=== PATIENT | female | born 1970 | race Caucasian/White ===

== ENCOUNTER 2020-04-15 07:37 | Day surgery (SDC) | payer MEDICARE, MEDICAID ==
[2020-04-15] MEDS ORDERED: Dextrose 5%-Lactated Ringers 1,000 ML IV SCH (07:45)
[2020-04-15] MEDS ORDERED: Glycopyrrolate 0.2 MG/ML 2 ML SDV IVPUSH ONE (07:45)
[2020-04-15] MEDS ORDERED: Propofol 200 MG/20 ML SDV ONE (07:55)
[2020-04-15] MEDS ORDERED: Midazolam 1 MG/ML 2 ML SDV ONE (07:55)
[2020-04-15] MEDS ORDERED: Acetaminophen/HYDROcodone 325-5 MG Tab PO ONE (09:57)
--- NOTE | 2020-04-22 11:11 | OR ---
DATE OF PROCEDURE: 04/15/2020 SURGEON: Kai Wray MD PREOPERATIVE DIAGNOSIS: Recurrent severe reflux symptoms following previous Juliane fundoplication. POSTOPERATIVE DIAGNOSIS: Intact Juliane fundoplication with: 1. Extensive esophageal fungal overgrowth. 2. Large amount of retained bile and gastric contents consistent with gastroparesis and associated patchy gastritis. OPERATIVE PROCEDURE: Esophagogastroduodenoscopy with biopsies of antrum for CLOtest. ANESTHESIA: IV sedation. INDICATION FOR PROCEDURE: This is a 49-year-old status post previous Juliane fundoplication done in [place] in October of 2017. Over the last year, she has had increasing problems with reflux and now often wakes up having a large amount of regurgitation. This is significant enough that it is interfering with her CPAP use as probably upon some air entering in the abdomen, she regurgitates quite a bit and wakes up coughing with obviously having some element of aspiration. The plan is to proceed with upper GI endoscopy for evaluation of the problem. Potential risks of the procedure including bleeding and perforation were discussed and the patient wished to proceed. DETAILS OF PROCEDURE: The patient was taken to the operating room and placed in a left lateral decubitus position. IV sedation was administered after which the upper GI endoscope was passed orally through the length of the esophagus, into the stomach with retroflexion view of the fundus, thereafter through the pyloric channel and into the proximal duodenum. The patient was noted to have some redness in the hypopharynx and larynx. As one entered the esophagus, there was fairly striking esophageal overgrowth involving the entire length of the esophagus. At the EG junction, the patient did have an intact-appearing Juliane fundoplication, however as one entered the stomach, there was a large amount of bile as well as some undigested old food consistent with gastroparesis. This was associated with patchy redness in the stomach more or less diffusely. The pyloric channel and duodenum to the junction of the 3rd and 4th portions were otherwise unremarkable. At this point, biopsies were obtained from the antrum and sent for CLOtest to establish the patient's H. pylori status and the patient was taken to the recovery room in satisfactory condition. We will begin the patient on a combination of Diflucan and Mycostatin swish and swallow and also reinstitute some Protonix. She has not been on proton pump inhibitors recently and we will see her back in a week to see how the symptoms are going. The patient appeared to probably have developed gastroparesis, probably related to either underlying primary gastrointestinal disease versus development of vagotomy occurring during the Juliane fundoplication. At any rate, the patient's symptoms are such that she probably will need to have more of a resectional procedure in order to control the problem. We will see her back next week to discuss treatment options. Kai Wray MD /[id number]
== END 2020-04-15 10:38 | disposition home or self-care (01) ==
LOC: JP.SDS 07:37
PROVIDERS: ATTEND Surgery
DX: K21.9 Gastro-esophageal reflux disease without esophagitis (principal); B37.81 Candidal esophagitis; J44.9 Chronic obstructive pulmonary disease, unspecified; K31.89 Other diseases of stomach and duodenum; E66.9 Obesity, unspecified; Z88.8 Allergy status to other drugs, medicaments and biological substances; Z98.84 Bariatric surgery status; Z68.30 Body mass index [BMI] 30.0-30.9, adult
CPT/HCPCS: 43239; 87081; A9270; J2250; J2704; J3490; J7121

== ENCOUNTER 2020-05-22 08:06 | Inpatient (IN) | payer MEDICARE, MEDICAID ==
[~2020-05-22 08:06] MED LIST: Ketamine 50 MG in Sodium Chloride 0.9% 49.5 ML IV SCH; Ketamine 500 MG/5 ML MDV IV SCH; Magnesium Sulfate 2 GM in Sodium Chloride 0.9% 100 ML IV SCH
[2020-05-22] MEDS ORDERED: Acetaminophen 500 MG Tab PO ONE (08:35)
[2020-05-22] MEDS ORDERED: Scopolamine 1.5 MG Transdermal Patch TOP ONE (08:35)
[2020-05-22] MEDS ORDERED: cefOXitin 2 GM in Sodium Chloride 0.9% 50 ML IV ONE (09:30)
[2020-05-22] MEDS ORDERED: Albuterol/Ipratropium 3.0-0.5 MG/3 ML Neb Soln NEB ONE (09:30)
[2020-05-22] MEDS ORDERED: Dextrose 5%-Lactated Ringers 1,000 ML IV SCH (09:30)
[2020-05-22] MEDS ORDERED: Rocuronium 50 MG/5 ML Vial ONE (10:37)
[2020-05-22] MEDS ORDERED: fentaNYL 250 MCG/5 ML SDV ONE (10:37)
[2020-05-22] MEDS ORDERED: Succinylcholine 200 MG/10 ML MDV ONE (10:37)
[2020-05-22] MEDS ORDERED: Glycopyrrolate 0.2 MG/ML 5 ML MDV ONE (10:37)
[2020-05-22] MEDS ORDERED: Dexamethasone 4 MG/ML SDV ONE (10:37)
[2020-05-22] MEDS ORDERED: Propofol 200 MG/20 ML SDV ONE (10:37)
[2020-05-22] MEDS ORDERED: Neostigmine Methylsulfate 1 MG/ML 5 ML Syringe ONE (10:37)
[2020-05-22] MEDS ORDERED: Ondansetron 4 MG/2 ML SDV ONE (10:37)
[2020-05-22] MEDS ORDERED: Naloxone 0.4 MG/ML SDV IVPUSH PRN (11:15)
[2020-05-22] MEDS ORDERED: Meropenem 500 MG SDV ONE (12:31)
[2020-05-22] MEDS: HYDROmorphone/Normal Saline 15 MG/30 ML PCA IV PRN (12:43)
[2020-05-22] MEDS ORDERED: Naloxone 0.4 MG/ML SDV IV PRN (13:00)
[2020-05-22] MEDS ORDERED: fentaNYL 100 MCG/2 ML SDV ONE (13:16)
[2020-05-22] MEDS ORDERED: Ondansetron 4 MG/2 ML SDV IVPUSH PRN (16:00)
[2020-05-22] MEDS ORDERED: Calcium Gluconate 10% 1 GM/10 ML SDV IVPUSH PRN (16:00)
[2020-05-22] MEDS ORDERED: Labetalol 20 MG/4 ML Syringe IVPUSH PRN (16:00)
[2020-05-22] MEDS ORDERED: Pantoprazole 40 MG Vial IVPUSH SCH (16:00)
[2020-05-22] MEDS ORDERED: diphenhydrAMINE 50 MG/ML SDV IVPUSH PRN (16:00)
[2020-05-22] MEDS ORDERED: Acetaminophen 500 MG Tab PO PRN (16:00)
[2020-05-22] MEDS ORDERED: hydrOXYzine HCL 100 MG/2 ML SDV IM PRN (16:00)
[2020-05-22] MEDS ORDERED: Metoclopramide 10 MG/2 ML SDV IVPUSH PRN (16:00)
[2020-05-22] MEDS ORDERED: MVI, Adult with Vitamin K 10 ML, Thiamine 200 MG, Zinc/Copper/Manganese/Selenium 1 ML i... IV SCH ×4 (16:00)
[2020-05-22] MEDS: Acetaminophen 500 MG Tab PO SCH ×2 (16:30→23:35)
[2020-05-22] MEDS: cefOXitin 2 GM in Sodium Chloride 0.9% 50 ML IV SCH ×2 (16:37→22:55)
[2020-05-22] MEDS: ClonazePAM 1 MG Tab PO SCH ×2 (16:38→21:05)
[2020-05-22] MEDS: ARIPiprazole 10 MG Tab PO SCH (20:13)
[2020-05-22] MEDS: Topiramate 100 MG Tab PO SCH (20:13)
[2020-05-22] MEDS: Heparin Sodium 5,000 Units/ML Vial SUBCUT SCH (20:13)
[2020-05-22] MEDS: Albuterol/Ipratropium 3.0-0.5 MG/3 ML Neb Soln INH SCH (20:21)
[2020-05-22] MEDS: Dextrose 5%-Lactated Ringers 1,000 ML IV SCH (22:58)
[2020-05-23] MEDS ORDERED: Iopamidol 612 MG/ML 50 ML SDV PO STA (03:45)
[2020-05-23] MEDS: cefOXitin 2 GM in Sodium Chloride 0.9% 50 ML IV SCH ×4 (04:54→22:25)
[2020-05-23] MEDS: Dextrose 5%-Lactated Ringers 1,000 ML IV SCH (04:55)
[2020-05-23] MEDS: ClonazePAM 1 MG Tab PO SCH ×4 (05:03→22:25)
[2020-05-23] MEDS: Albuterol/Ipratropium 3.0-0.5 MG/3 ML Neb Soln INH SCH ×4 (07:20→20:21)
[2020-05-23] MEDS ORDERED: Ondansetron 4 MG Tab.DIS PO PRN (07:41)
[2020-05-23] MEDS: Celecoxib 200 MG Cap PO SCH ×2 (08:31→20:20)
[2020-05-23] MEDS: Heparin Sodium 5,000 Units/ML Vial SUBCUT SCH ×2 (08:31→20:20)
[2020-05-23] MEDS: Acetaminophen 500 MG Tab PO SCH ×2 (08:31→17:39)
[2020-05-23] MEDS: Furosemide 20 MG Tab PO SCH (08:31)
[2020-05-23] MEDS: SCOPOLAMINE PATCH CHECK TOP SCH (08:44)
--- NOTE | 2020-05-23 09:20 | CR ---
UGI Limited HISTORY: Postbariatric surgery FINDINGS: Patient swallowed water-soluble contrast. Upright views of the abdomen show no evidence of extravasation or obstruction. There is a surgical drain in the left upper quadrant. IMPRESSION: Status post bariatric surgery No extravasation or obstruction seen
--- NOTE | 2020-05-23 10:32 | PN ---
DATE OF SERVICE: 05/23/2020 SUBJECTIVE: Andreia is postoperative day 1. Her magnesium was stopped last evening. She was quite sleepy. She did ambulate once. Her upper GI was good this morning. Vital signs have been stable. Oral intake is 370. Reaves catheter output is 735. MARIA FERNANDA drain put out 55 mL. REVIEW OF SYSTEMS: The remainder of the review of systems is negative for any pertinent positives and negatives. OBJECTIVE: GENERAL: Andreia is a 49-year-old female. She is quite sleepy, resting comfortably. VITAL SIGNS: TPR 97.7 at 0251 hours, and pulse and the rest of the vital signs at 0600 hours 95, 15, blood pressure 127/55, and O2 is 99% on 2 L. HEENT: Negative. NECK: Supple. HEART: Regular rate and rhythm. LUNGS: Clear. ABDOMEN: Dressing is dry and intact. MARIA FERNANDA put out 55 mL of a light red drainage. An abdominal binder is on. EXTREMITIES: Without peripheral edema. ASSESSMENT: Exploratory laparotomy with esophagogastrectomy with Clarence-en-Y esophagojejunostomy, repair of recurrent esophageal diaphragmatic hernia, and excision of atypical pigmented skin lesions, suprapubic area; date of procedure 05/22/2020; surgeon Kai Wray MD. PLAN: 1. Schedule and have consent signed for a delayed primary closure on 05/24/2020, at 0800 hours; IV, local, and TAP block; surgeon Kai Wray. 2. N.p.o. after midnight. 3. Continue step 1 gastric bypass diet. 4. Decrease IV to 100 mL per hour. 5. Discontinue Reaves catheter. 6. Communication order, 3 med cups per hour to assure adequate oral intake. 7. Continue ambulation and use of incentive spirometer. 8. We will evaluate p.r.n. or in the a.m. Gemma Saab PA-C /[id number]
[2020-05-23] MEDS: MVI, Adult with Vitamin K 10 ML, Thiamine 200 MG, Zinc/Copper/Manganese/Selenium 1 ML i... IV SCH ×4 (17:39)
[2020-05-23] MEDS: Pantoprazole 40 MG Delayed-Release Granules 1 Packet PO SCH (17:39)
[2020-05-23] MEDS: Albuterol/Ipratropium 3.0-0.5 MG/3 ML Neb Soln INH PRN ×2 (19:41→22:46)
[2020-05-23] MEDS: Nicotine 14 MG/24 Hr Patch TRDERM SCH (20:20)
[2020-05-23] MEDS: Topiramate 100 MG Tab PO SCH (20:20)
[2020-05-23] MEDS: ARIPiprazole 10 MG Tab PO SCH (20:21)
[2020-05-23] MEDS: Benzocaine/Cetylpyridinium/Menthol Lozenge MUCMEM PRN (23:02)
[2020-05-24] MEDS: Acetaminophen 500 MG Tab PO SCH ×3 (00:51→17:16)
[2020-05-24] MEDS: Dextrose 5%-Lactated Ringers 1,000 ML IV SCH (04:19)
[2020-05-24] MEDS: Albuterol/Ipratropium 3.0-0.5 MG/3 ML Neb Soln INH PRN (04:27)
[2020-05-24] MEDS: ClonazePAM 1 MG Tab PO SCH ×4 (05:55→21:18)
[2020-05-24] MEDS ORDERED: Lidocaine 1% with EPINEPHrine 1:100,000 50 ML MDV ONE (06:50)
[2020-05-24] MEDS ORDERED: Bupivacaine 0.5% 50 ML MDV ONE (06:50)
[2020-05-24] MEDS ORDERED: Meropenem 500 MG SDV ONE (06:50)
[2020-05-24] MEDS: Albuterol/Ipratropium 3.0-0.5 MG/3 ML Neb Soln INH SCH ×4 (07:45→20:51)
[2020-05-24] MEDS ORDERED: Propofol 200 MG/20 ML SDV ONE ×2 (07:46→08:18)
[2020-05-24] MEDS ORDERED: fentaNYL 100 MCG/2 ML SDV ONE (07:47)
[2020-05-24] MEDS ORDERED: Cyanocobalamin (Vitamin B12) 1,000 MCG/ML SDV IM ONE (09:00)
[2020-05-24] MEDS: Heparin Sodium 5,000 Units/ML Vial SUBCUT SCH ×2 (11:35→19:25)
[2020-05-24] MEDS: Nicotine 14 MG/24 Hr Patch TRDERM SCH (11:37)
[2020-05-24] MEDS: Furosemide 20 MG Tab PO SCH (11:37)
[2020-05-24] MEDS: Celecoxib 200 MG Cap PO SCH ×2 (11:37→20:51)
[2020-05-24] MEDS: SCOPOLAMINE PATCH CHECK TOP SCH (11:38)
[2020-05-24] MEDS: Pantoprazole 40 MG Delayed-Release Granules 1 Packet PO SCH (17:16)
[2020-05-24] MEDS: MVI, Adult with Vitamin K 10 ML, Thiamine 200 MG, Zinc/Copper/Manganese/Selenium 1 ML i... IV SCH ×4 (17:17)
[2020-05-24] MEDS: HYDROmorphone/Normal Saline 15 MG/30 ML PCA IV PRN (19:31)
[2020-05-24] MEDS: ARIPiprazole 10 MG Tab PO SCH (20:51)
[2020-05-24] MEDS: Topiramate 100 MG Tab PO SCH (20:51)
[2020-05-25] MEDS: Acetaminophen 500 MG Tab PO SCH ×3 (00:06→15:38)
[2020-05-25] MEDS: Albuterol/Ipratropium 3.0-0.5 MG/3 ML Neb Soln INH PRN (00:07)
[2020-05-25] MEDS: Dextrose 5%-Lactated Ringers 1,000 ML IV SCH (02:57)
[2020-05-25] MEDS: ClonazePAM 1 MG Tab PO SCH ×4 (05:32→21:34)
[2020-05-25] MEDS: Albuterol/Ipratropium 3.0-0.5 MG/3 ML Neb Soln INH SCH ×4 (07:31→20:05)
[2020-05-25] MEDS: Heparin Sodium 5,000 Units/ML Vial SUBCUT SCH ×2 (08:35→20:05)
[2020-05-25] MEDS: Furosemide 20 MG Tab PO SCH (08:36)
[2020-05-25] MEDS: Celecoxib 200 MG Cap PO SCH ×2 (08:36→20:11)
[2020-05-25] MEDS: Nicotine 14 MG/24 Hr Patch TRDERM SCH (08:36)
[2020-05-25] MEDS: Docusate Sodium 100 MG Cap PO SCH ×2 (08:39→20:11)
[2020-05-25] MEDS: Bisacodyl 5 MG Tab PO SCH ×2 (08:39→20:11)
[2020-05-25] MEDS: Acetaminophen/HYDROcodone 325-10 MG Tab PO PRN ×3 (10:30→20:42)
--- NOTE | 2020-05-25 12:10 | OR ---
DATE OF PROCEDURE: 05/24/2020 SURGEON: Kai Wray MD PREOPERATIVE DIAGNOSIS: Open abdominal incision. POSTOPERATIVE DIAGNOSIS: Open abdominal incision. OPERATIVE PROCEDURE: Delayed primary closure of open abdominal incision. ANESTHESIA: Local plus IV sedation. INDICATION FOR PROCEDURE: The patient is status post open laparotomy with esophagogastrectomy open small bowel as well as stomach which had contained a large amount of bezoar-type material. Together, this may leave the patient at high risk for wound infection if primary closure was undertaken; therefore, the wound was packed open for a planned delayed primary closure at this time. Potential risks including bleeding and infection were discussed, and the patient wishes to proceed. DETAILS OF PROCEDURE: The patient was taken to the operating room and placed in a supine position. IV sedation was administered, after which the operative dressing was taken down. The wound was inspected and found to be clean. The abdomen was then prepped and draped. The wound edges anesthetized with 1% lidocaine, mixed with Marcaine, and irrigated with meropenem-containing saline solution. The subcutaneous tissue was closed with 2 layers of 3- 0 and 4-0 Vicryl stitch and buzz for the skin. Dressing was applied. Bilateral transversus abdominis plane blocks were placed and the patient was taken to the recovery room in satisfactory condition. There were no other complications. Kai Wray MD /[id number]
--- NOTE | 2020-05-25 13:21 | PN ---
DATE OF SERVICE: 05/25/2020 The patient has been afebrile with stable vital signs. The oral intake has been fairly good. No bowel movement as of yet. We will begin some bowel stimulation today and switch her over to oral pain medication. Currently, she is on hydrocodone 5/325 one tablet q.i.d. p.r.n. for chronic pain and we will go up to a 10/325 at this point. For now, I am going to contact her personal physician tomorrow morning which will be Tuesday regarding roughly 2- week course of that. She has been on pain contract with Dr. Conner in [place]. Otherwise, we will begin some bowel stimulation today and continue with step-2 diet. Kai Wray MD /[id number]
[2020-05-25] MEDS: Pantoprazole 40 MG Delayed-Release Granules 1 Packet PO SCH (15:38)
[2020-05-25] MEDS: MVI, Adult with Vitamin K 10 ML, Thiamine 200 MG, Zinc/Copper/Manganese/Selenium 1 ML i... IV SCH ×4 (15:44)
[2020-05-25] MEDS ORDERED: Furosemide 20 MG/2 ML VIAL IVPUSH ONE (16:30)
[2020-05-25] MEDS: Topiramate 100 MG Tab PO SCH (20:11)
[2020-05-25] MEDS: ARIPiprazole 10 MG Tab PO SCH (20:12)
--- NOTE | 2020-05-25 20:42 | PN ---
DATE OF SERVICE: 05/24/2020 The patient has been afebrile with stable vital signs. Oral intake has been fairly good. We will go up to a step 2 diet today, and otherwise maximize activity and work with pulmonary toilet. She will have a delayed primary closure of abdominal incision today as well, and we will keep the [employer] going for now and likely switching over to oral pain medication tomorrow. Kai Wray MD /[id number]
[2020-05-26] MEDS: Acetaminophen 500 MG Tab PO SCH ×4 (00:09→23:06)
[2020-05-26] MEDS: Acetaminophen/HYDROcodone 325-10 MG Tab PO PRN ×3 (03:26→16:58)
[2020-05-26] MEDS: ClonazePAM 1 MG Tab PO SCH ×4 (05:11→23:06)
[2020-05-26] MEDS ORDERED: Furosemide 20 MG/2 ML VIAL IVPUSH ONE ×2 (05:33→06:43)
[2020-05-26] MEDS ORDERED: Potassium Chloride 20 MEQ in Premix Bag 1 BAG IV ONE (05:39)
[2020-05-26] MEDS ORDERED: Potassium Chloride 20 MEQ, Lidocaine 1% 2 ML in Sodium Chloride 0.9% 100 ML IV SCH (05:45)
[2020-05-26] MEDS: Albuterol/Ipratropium 3.0-0.5 MG/3 ML Neb Soln INH SCH ×4 (07:15→20:10)
[2020-05-26] MEDS: Heparin Sodium 5,000 Units/ML Vial SUBCUT SCH ×2 (07:32→20:10)
[2020-05-26] MEDS: Potassium Chloride 20 MEQ, Lidocaine 1% 2 ML in Sodium Chloride 0.9% 100 ML IV SCH ×2 (08:52→11:25)
[2020-05-26] MEDS: Nicotine 14 MG/24 Hr Patch TRDERM SCH (08:55)
[2020-05-26] MEDS: Celecoxib 200 MG Cap PO SCH ×2 (08:55→20:10)
[2020-05-26] MEDS: Furosemide 20 MG Tab PO SCH (08:55)
--- NOTE | 2020-05-26 09:39 | PN ---
DATE OF SERVICE: 05/26/2020 SUBJECTIVE: Andreia became hypoxic with activity yesterday, so she has O2 on. She was given Lasix, had 1300 out after the Lasix. Potassium today is 2.9, magnesium is 1.7. BNP is 745. Temp max of 99.2, and she is on 1.5 to 2 L of oxygen, and she was taken off her oxygen on 05/25/2020, and she did go down to 69%. Currently, her O2 is at 1.5 L, and her pulse ox is 94. Oral intake on a step-2 gastric bypass diet with no cereal was 1850. Urine output 3100, MARIA FERNANDA drain put out 10 mL. She has had 3 bowel movements. Pain is controlled with Franklin 10/325 mg every 4 hours. REVIEW OF SYSTEMS: Remainder of review of systems negative for any pertinent positives and negatives. OBJECTIVE: GENERAL: Andreia Sinha is a pleasant 49-year-old female. She is sitting up in the chair. VITAL SIGNS: TPR is 97.4/116, 18. Blood pressure 117/68. HEENT: Negative. NECK: Supple. HEART: Regular rate and rhythm. LUNGS: Clear. ABDOMEN: Dressings dry and intact. Abdominal binder is on. MARIA FERNANDA drain as above. EXTREMITIES: Without peripheral edema. ASSESSMENT: 1. 05/24/2020, delayed primary closure of open abdominal incision. Kai Wray MD. 2. Exploratory laparotomy with esophagogastrectomy with Clarence-en-Y esophagojejunostomy, repair of recurrent esophageal diaphragmatic hernia and excision of atypical pigmented skin lesion, suprapubic area. Date of procedure, 05/22/2020. Surgeon: Kai Wray MD. 3. Hypoxia. 4. Elevated BNP. PLAN: 1. Lasix 20 mg IV now. 2. KCl 40 mEq IV now. 3. Lasix 40 mg IV at 1400. 4. Check CBC, CMP, mag, phos, and BNP in a.m. 5. Saline lock IV. 6. Discontinue bowel stimulation. 7. Referral to consultation. The patient states that she was sleepy when she had her first visit. Dr. Conner will be called in regard to her pain medication. She is on a pain contract and will need to have her Franklin increased for 2 weeks. We will evaluate p.r.n. or in a.m. Gemma Norby, PA-C /[id number]
--- NOTE | 2020-05-26 09:50 | CR ---
CHEST: 2 view CLINICAL HISTORY:Shortness of breath COMPARISON:None FINDINGS: Patient has developed diffuse bilateral predominantly interstitial infiltrates. Heart size and pulmonary vascularity appear normal. No effusions are seen. IMPRESSION: Diffuse bilateral pulmonary infiltrates. These appear to be new when comparing to a limited postoperative upper GI image. Comparison with prior chest x-ray would be helpful. Findings are most consistent with pneumonitis. Interstitial edema from CHF is felt less likely
[2020-05-26] MEDS ORDERED: Dextrose 5%-Lactated Ringers 1,000 ML IV SCH (10:00)
[2020-05-26] MEDS ORDERED: Furosemide 40 MG/4 ML VIAL IVPUSH ONE (14:00)
[2020-05-26] MEDS: Pantoprazole 40 MG Delayed-Release Granules 1 Packet PO SCH (16:21)
[2020-05-26] MEDS: Topiramate 100 MG Tab PO SCH (20:10)
[2020-05-26] MEDS: ARIPiprazole 10 MG Tab PO SCH (20:10)
[2020-05-27] MEDS: Albuterol/Ipratropium 3.0-0.5 MG/3 ML Neb Soln INH PRN (03:14)
[2020-05-27] MEDS: Acetaminophen/HYDROcodone 325-10 MG Tab PO PRN ×4 (03:41→20:48)
[2020-05-27] MEDS: ClonazePAM 1 MG Tab PO SCH ×5 (05:09→23:01)
[2020-05-27] MEDS ORDERED: Potassium Chloride Riders 40 MEQ in Premix Bag 1 BAG IV ONE (06:58)
[2020-05-27] MEDS: Albuterol/Ipratropium 3.0-0.5 MG/3 ML Neb Soln INH SCH ×4 (07:38→20:49)
[2020-05-27] MEDS: Acetaminophen 500 MG Tab PO SCH ×3 (07:58→23:46)
[2020-05-27] MEDS: Heparin Sodium 5,000 Units/ML Vial SUBCUT SCH (07:58)
[2020-05-27] MEDS: Nicotine 14 MG/24 Hr Patch TRDERM SCH (08:14)
[2020-05-27] MEDS: Celecoxib 200 MG Cap PO SCH ×2 (08:15→20:50)
[2020-05-27] MEDS: Furosemide 20 MG Tab PO SCH (08:15)
[2020-05-27] MEDS: Potassium Chloride 10% 20 MEQ/15 ML Soln 15 ML UD Cup PO SCH ×2 (08:23→20:50)
[2020-05-27] MEDS: Potassium Chloride 20 MEQ, Lidocaine 1% 2 ML in Sodium Chloride 0.9% 100 ML IV SCH ×2 (08:24→11:50)
[2020-05-27] MEDS: Furosemide 40 MG/4 ML VIAL IVPUSH SCH ×2 (08:24→14:14)
--- NOTE | 2020-05-27 09:20 | CR ---
CHEST: 2 view CLINICAL HISTORY:Hypoxia COMPARISON:05/26/2020 FINDINGS: Diffuse bilateral pulmonary infiltrates persist without significant change. Heart size and pulmonary vascularity are normal. There has been previous abdominal surgery IMPRESSION: Persistent diffuse bilateral pulmonary infiltrates suggest pneumonitis.
[2020-05-27] MEDS ORDERED: Sodium Chloride 0.9% 10 ML Syringe FLUSH ONE (10:23)
--- NOTE | 2020-05-27 10:25 | PN ---
DATE OF SERVICE: 05/27/2020 SUBJECTIVE: Andreia reports her pain is controlled. Vital signs have been stable. She remains to be hypoxic and requires 2 L of O2 and her oxygen with the 2 L remains 90% to 96%. Pulse rate has been slightly tachycardic 107 to 122. Oral intake 1850. Urine output 3100. MARIA FERNANDA drain put out 10 mL of a light pink serosanguineous drainage. LABORATORY DATA: Hemoglobin 10.7. Potassium is 3. REVIEW OF SYSTEMS: Remainder of review of systems negative for any pertinent positives and negatives. OBJECTIVE: GENERAL: Andreia Sinha is a pleasant 49-year-old female. VITAL SIGNS: TPR at 0300, 99.4; 107; 18; blood pressure 97/64; O2 sat by pulse oximetry 94% on 3 L. HEENT: Negative. NECK: Supple. HEART: Regular rate and rhythm. LUNGS: Revealed decreased breath sounds bilaterally. She does have rales in her bases, rhonchi with coughing. ABDOMEN: Aquacel dressings on. Abdominal binder is on. MARIA FERNANDA drain intact, draining as above. EXTREMITIES: Revealed trace peripheral edema. SCDs are on. ASSESSMENT: 1. Hypoxia. 2. 05/24/2020, delayed primary closure for open abdominal incision. 3. Exploratory laparotomy with esophagogastrectomy with Clarence-en-Y esophagojejunostomy, then repair of recurrent esophageal diaphragmatic hernia and excision of atypical skin lesion, suprapubic area. 4. Date of procedure: 05/22/2020. Surgeon: Kai Wray MD. PLAN: 1. Consult Dr. Collins for hypoxia. 2. KCl 40 mEq liquid b.i.d. today. 3. KCl 40 mEq IV 1 time today. 4. Lasix 40 mg IV b.i.d. today, 1 dose now and the other dose at 1400. 5. Chest x-ray PA and lateral now. 6. Discontinue MARIA FERNANDA drain. 7. Check CBC, CMP, mag, phos, and BNP in a.m. 8. Andreia does use a CPAP at home, and if a family member is coming to see her, they will bring that CPAP into the hospital for use while she is in the hospital. 9. Discussed cessation of smoking. 10.We will evaluate p.r.n. or in a.m. Gemma Saab PA-C /[id number]
[2020-05-27] MEDS ORDERED: Sodium Chloride 0.9% 100 ML IV SCH (10:30)
[2020-05-27] MEDS ORDERED: Iopamidol 755 Mg/ML 100 ML Bottle IV SCH (10:30)
--- NOTE | 2020-05-27 12:47 | CT ---
Ang Chest CLINICAL HISTORY: Hypoxia TECHNIQUE: Thin section axial contiguous tomographic sections were taken through the chest after bolus IV iodinated contrast administration. Coronal and sagittal images were reconstructed. Auto dosage reduction and iterative reconstruction techniques employed. FINDINGS: Patient is moderate diffuse bilateral groundglass opacities and some interstitial infiltrate. This is greater on the right. No mediastinal mass is identified. There are some nonspecific mediastinal lymph nodes. There are scattered small clots in the branching vessels in both lungs more prominent in the lower lobes. Aorta is free of aneurysm or dissection. Scans in the upper abdomen show previous gastric surgery and cholecystectomy. IMPRESSION: Scattered small pulmonary bilaterally Diffuse groundglass opacification most consistent with pneumonitis Dr. Wray and Dr. Collins were notified of the findings by telephone at the time of this dictation at 12:40 PM
--- NOTE | 2020-05-27 13:18 | PCM.CONS ---
H&P History of Present Illness - General Date of Service: 05/27/20 Admit Problem/Dx: Admission Diagnosis/Problem Admission Diagnosis/Problem Surgical procedure Source of Information: Patient, Provider, RN Notes Reviewed History Limitations: Reports: No Limitations - History of Present Illness Initial Comments - Free Text/Narative: Ms. Sinha is a 49-year-old woman who I been asked to see by Dr. Wray concerning postoperative hypoxia. She was admitted on 22 May and underwent exploratory laparotomy for esophagogastrectomy with formation of a Rj-en-Y esophagojejunostomy. She initially did well during the postoperative period and did undergo delayed primary closure on the . Over the past few days has become progressively more hypoxic and requiring increased levels of supplemental oxygen. Chest x-rays have shown bilateral infiltrates versus fluid. She has failed to improve from a respiratory standpoint despite good diuresis. CT angiogram of the chest has been obtained this morning and does document bilateral pulmonary emboli as well as groundglass bilateral infiltrates consistent with probable viral infection. Abdominal Pain Score (Numeric/FACES): 8 - Related Data Allergies/Adverse Reactions: Allergies Allergy/AdvReac Type Severity Reaction Status Date / Time citalopram [From Celexa] Allergy Other Verified 05/22/20 09:08 fentanyl Allergy Headache Verified 05/22/20 09:08 tramadol Allergy Hives Verified 05/22/20 09:08 morphine AdvReac Diarrhea Verified 05/22/20 09:08 oxcarbazepine AdvReac Nausea Verified 05/22/20 09:08 Home Medications: Home Meds Albuterol Sulfate [Proair Hfa] 2 puff IH Q4H PRN 04/15/20 [History] Brexpiprazole [Rexulti] 2 mg PO BEDTIME 04/15/20 [History] Calcium Carb/Vitamin D3/Vit K1 [Calcium + Vit D & K Chew] 1 each PO DAILY 04/15/20 [History] Cyclobenzaprine [Flexeril] 10 mg PO BEDTIME PRN 04/15/20 [History] Diclofenac Sodium [Voltaren 1% Gel] 2 gm TOP QID PRN 04/15/20 [History] Escitalopram [Lexapro] 10 mg PO BEDTIME 04/15/20 [History] Fluticasone Propionate [Flonase] 2 sprays NS DAILY PRN 04/15/20 [History] Furosemide [Lasix] 20 mg PO DAILY 04/15/20 [History] Hydrocodone/Acetaminophen [Hubbard 5-325 Tablet] 1 tab PO QID PRN 04/15/20 [History] SUMAtriptan succinate [Imitrex] 50 mg PO ASDIRECTED PRN 04/15/20 [History] Sennosides [Senna] 17.2 mg PO BID PRN 04/15/20 [History] Topiramate [Topamax] 200 mg PO BEDTIME 04/15/20 [History] atorvaSTATin [Lipitor] 10 mg PO BEDTIME 04/15/20 [History] clonazePAM [Clonazepam] 1 mg PO QID 04/15/20 [History] Past Medical History Cardiovascular History: Reports: High Cholesterol Respiratory History: Reports: Sleep Apnea, Other (See Below) Other Respiratory History: emphysema Gastrointestinal History: Reports: Chronic Constipation, GERD, Hiatal Hernia Genitourinary History: Reports: Other (See Below) Other Genitourinary History: 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: , Spontaneous Musculoskeletal History: Reports: Arthritis, Back Pain, Chronic, Fracture, Fibromyalgia, Neck Pain, Chronic, Osteoporosis Neurological History: Reports: Head Trauma, Vertigo Psychiatric History: Reports: Anxiety, Depression Hematologic History: Reports: Blood Transfusion(s) Oncologic (Cancer) History: Reports: Cervix - Infectious Disease History Infectious Disease History: Reports: Chicken Pox, Novel Coronavirus, Rheumatic Fever - Past Surgical History Respiratory Surgical History: Reports: None GI Surgical History: Reports: Cholecystectomy, Colonoscopy, EGD, Juliane Fundoplication Female Surgical History: Reports: D&C Musculoskeletal Surgical History: Reports: None Dermatological Surgical History: Reports: None Social & Family History - Family History Family Medical History: No Pertinent Family History Cardiac: Reports: Hypertension Respiratory: Reports: COPD GI: Reports: Colon Polyps OBGYN: Reports: Other (See Below) Other OBGYN Family History: polycystic ovarian syndrome Endocrine/Metabolic: Reports: Obesity/MBI 30+ Oncologic: Reports: Lung, Metastatic, Skin - Tobacco Use Tobacco Use Status *Q: Current Every Day Tobacco User Years of Tobacco use: 40 Packs/Tins Daily: 0.5 Used Tobacco, but Quit: No Second Hand Smoke Exposure: Yes - Caffeine Use Caffeine Use: Reports: Coffee - Recreational Drug Use Recreational Drug Use: No H&P Review of Systems - Review of Systems: Review Of Systems: See Below General: Reports: Weakness, Fatigue. Denies: Fever, Chills Pulmonary: Reports: Shortness of Breath. Denies: Wheezing, Pleuritic Chest Pain, Cough, Sputum, Hemoptysis Cardiovascular: Reports: Dyspnea on Exertion. Denies: Chest Pain, Palpitations, Orthopnea, PND, Edema, Lightheadedness Gastrointestinal: Reports: Abdominal Pain. Denies: Difficulty Swallowing, Distension, Hematemesis, Hematochezia, Melena, Nausea, Vomiting Genitourinary: Reports: No Symptoms Exam - Exam Exam: See Below - Vital Signs Vital Signs: Last Vital Signs Temp 97 F 05/27/20 11:00 Pulse 114 H 05/27/20 11:00 Resp 16 05/27/20 11:00 BP 102/63 05/27/20 11:00 Pulse Ox 94 L 05/27/20 11:00 Weight: 144 lb - Exam Quality Assessment: Supplemental Oxygen, DVT Prophylaxis General: Alert, Oriented, Cooperative, Moderate Distress Neck: Supple, Trachea Midline, +2 Carotid Pulse wo Bruit Lungs: Decreased Breath Sounds, Rales. No: Rhonchi, Wheezing Cardiovascular: Regular Rate, Regular Rhythm, Normal S1, Normal S2. No: Systolic Murmur, Diastolic Murmur GI/Abdominal Exam: Soft, No Organomegaly, Tender. No: Distended, Guarding, Rigid, Rebound Extremities: Non-Tender, No Pedal Edema - Patient Data Lab Results Last 24 hrs: Laboratory Results - last 24 hr 05/22/20 05/26/20 05/27/20 Range/Units 09:00 16:50 05:00 WBC 11.9 H (4.5-11.0) K/uL RBC 3.43 (3.30-5.50) M/uL Hgb 10.7 L (12.0-15.0) g/dL Hct 34.2 L (36.0-48.0) % MCV 100 H (80-98) fL MCH 31 (27-31) pg MCHC 31 L (32-36) % Plt Count 268 (150-400) K/uL Sodium (140-148) mmol/L Potassium 3.2 L (3.6-5.2) mmol/L Chloride (100-108) mmol/L Carbon Dioxide (21-32) mmol/L Anion Gap (5.0-14.0) mmol/L BUN (7-18) mg/dL Creatinine (0.6-1.0) mg/dL Est Cr Clr Drug Dosing mL/min Estimated GFR (MDRD) (>60) Glucose (74-106) mg/dL Calcium (8.5-10.1) mg/dL Phosphorus (2.5-4.9) mg/dL Magnesium (1.8-2.4) mg/dL Total Bilirubin (0.2-1.0) mg/dL AST (15-37) U/L ALT (12-78) U/L Alkaline Phosphatase (46-116) U/L NT-Pro-B Natriuret Pep (5-125) pg/mL Total Protein (6.4-8.2) g/dL Albumin (3.4-5.0) g/dL Globulin (2.3-3.5) g/dL Albumin/Globulin Ratio (1.2-2.2) Vitamin A 54.0 (20.1-62.0) ug/dL 05/27/20 Range/Units 05:00 WBC (4.5-11.0) K/uL RBC (3.30-5.50) M/uL Hgb (12.0-15.0) g/dL Hct (36.0-48.0) % MCV (80-98) fL MCH (27-31) pg MCHC (32-36) % Plt Count (150-400) K/uL Sodium 143 (140-148) mmol/L Potassium 3.0 L (3.6-5.2) mmol/L Chloride 107 (100-108) mmol/L Carbon Dioxide 25 (21-32) mmol/L Anion Gap 14.0 (5.0-14.0) mmol/L BUN 11 (7-18) mg/dL Creatinine 0.8 (0.6-1.0) mg/dL Est Cr Clr Drug Dosing 60.43 mL/min Estimated GFR (MDRD) > 60 (>60) Glucose 83 (74-106) mg/dL Calcium 8.2 L (8.5-10.1) mg/dL Phosphorus 5.2 H (2.5-4.9) mg/dL Magnesium 1.8 (1.8-2.4) mg/dL Total Bilirubin 0.5 (0.2-1.0) mg/dL AST 45 H (15-37) U/L ALT 55 (12-78) U/L Alkaline Phosphatase 127 H (46-116) U/L NT-Pro-B Natriuret Pep 313 H (5-125) pg/mL Total Protein 5.3 L (6.4-8.2) g/dL Albumin 1.9 L (3.4-5.0) g/dL Globulin 3.4 (2.3-3.5) g/dL Albumin/Globulin Ratio 0.6 L (1.2-2.2) Vitamin A (20.1-62.0) ug/dL Result Diagrams: 05/27/20 05:00 05/27/20 05:00 Sepsis Event Note - Evaluation Sepsis Screening Result: No Definite Risk - Focused Exam Vital Signs: Vital Signs Temp Pulse Resp BP BP Pulse Ox 05/27/20 11:00 97 F 114 H 16 102/63 94 L 05/27/20 07:00 97.8 F 108 H 18 108/63 97 05/27/20 03:00 99.4 F 107 H 18 97/64 94 L Consult PN Assessment/Plan Procedures: Procedures CULTURE SCREEN ONLY (04/15/20) EGD BIOPSY SINGLE/MULTIPLE (04/15/20) Problem List Initiated/Reviewed/Updated: Yes My Orders Last 24 Hours: My Active Orders 05/27/20 12:42 CORONAVIRUS COVID-19, YONI Stat 05/27/20 16:00 Enoxaparin [Lovenox] 70 mg SUBCUT Q12H Plan: ASSESSMENT AND RECOMMENDATIONS BILATERAL PULMONARY EMBOLI-no prior history of deep vein thrombosis or pulmonary emboli. CT scan did document bilateral small pulmonary emboli. Likely a contributing factor to her hypoxic respiratory compromise. -Lovenox 70 mg subcu every 12 hours -Transition to oral anticoagulation in 48 hours BILATERAL PULMONARY INFILTRATES-CT scan shows bilateral groundglass infiltrates with areas of consolidation. She has a known history of COVID-19 infection occurring 2-1/2 months ago. Currently has normal white blood cell count and no significant temperature elevation. Possible viral infection versus bacterial. -Blood cultures pending -Initiate broad-spectrum antibiotic therapy for possible healthcare associated pneumonia; vancomycin, levofloxacin, and Zosyn HYPOXIC RESPIRATORY FAILURE-requiring increasing levels of supplemental oxygen to maintain adequate oxygenation. No significant improvement noted thus far with diuresis. Likely secondary to pulmonary emboli and bilateral pulmonary infiltrates. -Nebulizer therapy as needed -Supplemental oxygen as needed STATUS POST ESOPHAGOGASTRECTOMY AND CREATION OF RJ-EN-Y ESOPHAGOJEJUNOSTOMY -Postoperative care per Dr. Wray Requesting Provider: BUBBA Date Consult Requested: 05/27/20 Reason for Consult: Hypoxia Patient History Reviewed: Yes Notified Requestor: Yes
[2020-05-27] MEDS: Enoxaparin 80 MG/0.8 ML Syringe SUBCUT SCH (15:43)
[2020-05-27] MEDS: Pantoprazole 40 MG Delayed-Release Granules 1 Packet PO SCH (15:45)
[2020-05-27] MEDS ORDERED: Vancomycin 1 GM SDV IV SCH (16:00)
[2020-05-27] MEDS: Levofloxacin/Dextrose 5%-Water 750 MG in Premix Bag 1 BAG IV SCH (16:05)
[2020-05-27] MEDS: Piperacillin/Tazobactam/Dext 3.375 GM in Premix Bag 1 BAG IV SCH ×2 (17:29→23:45)
[2020-05-27] MEDS ORDERED: Vancomycin 1.3 GM in Sodium Chloride 0.9% 250 ML IV ONE (18:00)
[2020-05-27] MEDS: Cyclobenzaprine 10 MG Tab PO PRN (18:11)
[2020-05-27] MEDS: Lactobacillus Rhamnosus GG (Probiotic) Cap PO SCH (20:49)
[2020-05-27] MEDS: Topiramate 100 MG Tab PO SCH (20:50)
[2020-05-27] MEDS: ARIPiprazole 10 MG Tab PO SCH (20:50)
[2020-05-28] MEDS: Enoxaparin 80 MG/0.8 ML Syringe SUBCUT SCH ×3 (02:49→15:34)
[2020-05-28] MEDS: Cyclobenzaprine 10 MG Tab PO PRN (02:58)
[2020-05-28] MEDS: Piperacillin/Tazobactam/Dext 3.375 GM in Premix Bag 1 BAG IV SCH ×3 (05:01→17:22)
[2020-05-28] MEDS: ClonazePAM 1 MG Tab PO SCH ×4 (06:29→21:51)
[2020-05-28] MEDS: Albuterol/Ipratropium 3.0-0.5 MG/3 ML Neb Soln INH SCH ×4 (06:29→21:48)
[2020-05-28] MEDS: Acetaminophen/HYDROcodone 325-10 MG Tab PO PRN ×4 (06:36→22:09)
[2020-05-28] MEDS: Celecoxib 200 MG Cap PO SCH ×2 (08:07→21:51)
[2020-05-28] MEDS: Nicotine 14 MG/24 Hr Patch TRDERM SCH (08:07)
[2020-05-28] MEDS: Lactobacillus Rhamnosus GG (Probiotic) Cap PO SCH ×2 (08:07→21:51)
[2020-05-28] MEDS: Furosemide 20 MG Tab PO SCH (08:08)
[2020-05-28] MEDS: Hypromellose 0.3% Ophth Soln 15 ML Bottle EYEBOTH PRN ×2 (09:47→17:24)
--- NOTE | 2020-05-28 10:40 | PN ---
DATE OF SERVICE: 05/28/2020 SUBJECTIVE: Andreia currently is very sleepy. She is on 4 L of O2 to maintain 92%. Blood pressure has been low at 94/49. She was started on Lovenox for bilateral pulmonary embolism yesterday. Unable to obtain history due to inability to wake her up. OBJECTIVE: GENERAL: Andreia Sinha is a 49-year-old female. VITAL SIGNS: TPR is 99.3; 110; 22; blood pressure 82/48. Pulse oximetry last checked, it was 97% on 2 L; prior to that at 02:35, 80%; and at 06:26, it was 88%. HEART: Regular rate and rhythm. LUNGS: Shallow, but she is soundly sleeping. Rest of exam deferred. ASSESSMENT: 1. Bilateral pulmonary embolism. 2. Hypoxia. 3. 05/24/2020, delayed primary closure for open abdominal incision. 4. Exploratory laparotomy with esophagogastrectomy with Clarence-en-Y esophagojejunostomy, then repair of recurrent esophageal diaphragmatic hernia and excision of atypical skin lesion suprapubic area. Date of procedure: 05/22/2020. Surgeon: Kai Wray MD. PLAN: 1. Discontinue Tylenol p.r.n. 2. Check CBC, CMP, mag, phos in a.m. 3. We will evaluate p.r.n. Nurses are aware of her sleepiness and will alter her with the Klonopin, so she does not get them the same time. 4. We will evaluate p.r.n. or in a.m. Gemma Saab PA-C /[id number]
--- NOTE | 2020-05-28 13:18 | PCM.CONSN ---
- General Info Date of Service: 05/28/20 Subjective Update: Ms. Sinha has been stable over the last 24 hours and has shown some improvement in respiratory status. Yesterday had been requiring 3 to 4 L of oxygen per minute via nasal cannula to obtain adequate saturations. She is now down to 2 L/min via nasal cannula and otherwise feeling well. Functional Status: Reports: Tolerating Diet, Ambulating, Urinating - Review of Systems General: Reports: Weakness, Fatigue. Denies: Fever, Chills Pulmonary: Reports: No Symptoms Cardiovascular: Reports: No Symptoms Gastrointestinal: Reports: Abdominal Pain. Denies: Difficulty Swallowing, Hematochezia, Melena, Nausea, Vomiting - Patient Data Vitals - Most Recent: Last Vital Signs Temp 98 F 05/28/20 11:33 Pulse 116 H 05/28/20 11:33 Resp 18 05/28/20 11:33 BP 92/59 L 05/28/20 11:33 Pulse Ox 94 L 05/28/20 11:33 Weight - Most Recent: 144 lb I&O - Last 24 Hours: Intake & Output 05/27/20 05/28/20 05/28/20 22:59 06:59 14:59 Intake Total 1380 350 Output Total 1725 800 Balance -345 -450 Lab Results Last 24 Hours: Laboratory Results - last 24 hr 05/28/20 05/28/20 Range/Units 04:00 04:00 WBC 11.5 H (4.5-11.0) K/uL RBC 3.29 L (3.30-5.50) M/uL Hgb 10.4 L (12.0-15.0) g/dL Hct 33.1 L (36.0-48.0) % MCV 101 H (80-98) fL MCH 32 H (27-31) pg MCHC 31 L (32-36) % Plt Count 296 (150-400) K/uL Sodium 140 (140-148) mmol/L Potassium 4.1 (3.6-5.2) mmol/L Chloride 107 (100-108) mmol/L Carbon Dioxide 25 (21-32) mmol/L Anion Gap 7.9 (5.0-14.0) mmol/L BUN 9 (7-18) mg/dL Creatinine 1.0 (0.6-1.0) mg/dL Est Cr Clr Drug Dosing 48.34 mL/min Estimated GFR (MDRD) 59 L (>60) Glucose 83 (74-106) mg/dL Calcium 8.3 L (8.5-10.1) mg/dL Phosphorus 5.1 H (2.5-4.9) mg/dL Magnesium 2.0 (1.8-2.4) mg/dL Total Bilirubin 0.5 (0.2-1.0) mg/dL AST 41 H (15-37) U/L ALT 45 (12-78) U/L Alkaline Phosphatase 139 H (46-116) U/L NT-Pro-B Natriuret Pep 192 H (5-125) pg/mL Total Protein 5.5 L (6.4-8.2) g/dL Albumin 1.9 L (3.4-5.0) g/dL Globulin 3.6 H (2.3-3.5) g/dL Albumin/Globulin Ratio 0.5 L (1.2-2.2) Med Orders - Current: Current Medications Hydrocodone Bitart/Acetaminophen ([place] 325-10 Mg) 1 tab PO Q4H PRN PRN Reason: Pain Last Admin: 05/28/20 12:20 Dose: 1 tab Documented by: Albuterol/Ipratropium (Duoneb 3.0-0.5 Mg/3 Ml) 3 ml INH QIDRT [facility] Last Admin: 05/28/20 10:56 Dose: 3 ml Documented by: Albuterol/Ipratropium (Duoneb 3.0-0.5 Mg/3 Ml) 3 ml INH ASDIRECTED PRN PRN Reason: BREATHING Last Admin: 05/27/20 03:14 Dose: 3 ml Documented by: Apixaban (Eliquis) 10 mg PO BID [facility] Stop: 06/04/20 21:01 Aripiprazole (Abilify) 10 mg PO BEDTIME [facility] Last Admin: 05/27/20 20:50 Dose: 10 mg Documented by: Artificial Tears (Genteal Mild To Moderate Ophth Soln) 0 ml EYEBOTH Q1H PRN PRN Reason: Dry Eyes Last Admin: 05/28/20 09:47 Dose: 1 applic Documented by: Benzocaine/Menthol (Cepacol Sore Throat) 1 lozenge MUCMEM Q2H PRN PRN Reason: Sore Throat Last Admin: 05/23/20 23:02 Dose: 1 kailey Documented by: Celecoxib (Celebrex) 200 mg PO BID [facility] Last Admin: 05/28/20 08:07 Dose: 200 mg Documented by: Clonazepam (Klonopin) 1 mg PO QID [facility] Last Admin: 05/28/20 09:43 Dose: 1 mg Documented by: Cyclobenzaprine HCl (Flexeril) 10 mg PO Q8H PRN PRN Reason: Muscle Spasm Last Admin: 05/28/20 02:58 Dose: 10 mg Documented by: Diphenhydramine HCl (Benadryl) 50 mg IVPUSH Q4H PRN PRN Reason: ITCHING Enoxaparin Sodium (Lovenox) 70 mg SUBCUT Q12H [facility] Stop: 05/29/20 08:00 Last Admin: 05/28/20 03:05 Dose: Not Given Documented by: Furosemide (Lasix) 20 mg PO DAILY [facility] Last Admin: 05/28/20 08:08 Dose: 20 mg Documented by: Hydroxyzine HCl (Vistaril) 100 mg IM Q4H PRN PRN Reason: pain Last Admin: 05/28/20 02:58 Dose: 100 mg Documented by: Piperacillin/Tazobactam/ (Dextrose 3.375 gm/ Premix) 50 mls @ 100 mls/hr IV Q6H [facility] Last Admin: 05/28/20 10:53 Dose: 100 mls/hr Documented by: Levofloxacin/Dextrose 750 mg/ (Premix) 150 mls @ 100 mls/hr IV Q24H [facility] Last Admin: 05/27/20 16:05 Dose: 100 mls/hr Documented by: Vancomycin HCl 1 gm/ Sodium (Chloride) 250 mls @ 167 mls/hr IV Q12H [facility] Last Admin: 05/28/20 05:02 Dose: 167 mls/hr Documented by: Labetalol HCl (Normodyne) 5 mg IVPUSH Q5M PRN PRN Reason: SBP over 160 OR DBP over 95 Lactobacillus Rhamnosus (Culturelle) 1 cap PO BID [facility] Last Admin: 05/28/20 08:07 Dose: 1 cap Documented by: Metoclopramide HCl (Reglan) 10 mg IVPUSH Q6H PRN PRN Reason: NAUSEA NOT CONTROL BY ZOFRAN Nicotine (Habitrol) 14 mg TRDERM DAILY [facility] Last Admin: 05/28/20 08:07 Dose: 14 mg Documented by: Ondansetron HCl (Zofran) 4 mg IVPUSH Q4H PRN PRN Reason: Nausea/Vomiting Ondansetron HCl (Zofran Odt) 4 mg PO Q4H PRN PRN Reason: Nausea/Vomiting Pantoprazole Sodium (Protonix Granules) 40 mg PO Q24H [facility] Last Admin: 05/27/20 15:45 Dose: 40 mg Documented by: Topiramate (Topamax) 200 mg PO BEDTIME [facility] Last Admin: 05/27/20 20:50 Dose: 200 mg Documented by: Discontinued Medications Acetaminophen (Tylenol Extra Strength) 1,000 mg PO ONETIME ONE Stop: 05/22/20 08:36 Last Admin: 05/22/20 09:16 Dose: 1,000 mg Documented by: Acetaminophen (Tylenol Extra Strength) 1,000 mg PO Q8H [facility] Last Admin: 05/27/20 23:46 Dose: 1,000 mg Documented by: Acetaminophen (Tylenol Extra Strength) 500 mg PO Q8H PRN PRN Reason: MILD PAIN Hydrocodone Bitart/Acetaminophen ([place] 325-10 Mg) 1 tab PO Q4H PRN PRN Reason: PAIN Last Admin: 05/28/20 06:36 Dose: 1 tab Documented by: Albuterol/Ipratropium (Duoneb 3.0-0.5 Mg/3 Ml) 3 ml NEB ONETIME ONE Stop: 05/22/20 09:31 Last Admin: 05/22/20 10:32 Dose: 3 ml Documented by: Bisacodyl (Dulcolax) 10 mg PO BID [facility] Last Admin: 05/25/20 20:11 Dose: 10 mg Documented by: Bupivacaine HCl (Marcaine 0.5%) Confirm Administered Dose 50 ml .ROUTE .STK-MED ONE Stop: 05/24/20 06:51 Last Admin: 05/24/20 08:20 Dose: 14 ml Documented by: Calcium Gluconate (Calcium Gluconate) 1 gm IVPUSH ONETIME PRN PRN Reason: SX MAGNESIUM TOXICITY Stop: 05/22/20 23:59 Ropivacaine 33 ml/Dexamethasone 8 mg/Epinephrine HCl 0.4 mg/ Sodium Chloride 44.6 ml 0 ml NERVRT ASDIRECTED [facility] Last Admin: 05/22/20 12:10 Dose: 80 syringe Documented by: Ropivacaine 33 ml/Dexamethasone 8 mg/Epinephrine HCl 0.4 mg/ Sodium Chloride 44.6 ml 0 ml NERVRT ASDIRECTED [facility] Last Admin: 05/24/20 08:20 Dose: 80 syringe Documented by: Cyanocobalamin (Vitamin B12) 1,000 mcg IM ONETIME ONE Stop: 05/24/20 09:01 Last Admin: 05/24/20 11:38 Dose: 1,000 mcg Documented by: Dexamethasone (Decadron) Confirm Administered Dose 4 mg .ROUTE .STK-MED ONE Stop: 05/22/20 10:38 Docusate Sodium (Colace) 100 mg PO BID [facility] Last Admin: 05/25/20 20:11 Dose: 100 mg Documented by: Fentanyl (Sublimaze) Confirm Administered Dose 250 mcg .ROUTE .STK-MED ONE Stop: 05/22/20 10:38 Fentanyl (Sublimaze) Confirm Administered Dose 100 mcg .ROUTE .STK-MED ONE Stop: 05/22/20 13:17 Fentanyl (Sublimaze) Confirm Administered Dose 100 mcg .ROUTE .STK-MED ONE Stop: 05/24/20 07:48 Furosemide (Lasix) 20 mg IVPUSH ONETIME ONE Stop: 05/25/20 16:31 Last Admin: 05/25/20 16:52 Dose: 20 mg Documented by: Furosemide (Lasix) 20 mg IVPUSH ONETIME ONE Stop: 05/26/20 05:34 Last Admin: 05/26/20 05:52 Dose: 20 mg Documented by: Furosemide (Lasix) 20 mg IVPUSH ONETIME ONE Stop: 05/26/20 06:44 Last Admin: 05/26/20 07:30 Dose: 20 mg Documented by: Furosemide (Lasix) 40 mg IVPUSH ONETIME ONE Stop: 05/26/20 14:01 Last Admin: 05/26/20 14:00 Dose: 40 mg Documented by: Furosemide (Lasix) 40 mg IVPUSH BID@0900,1400 [facility] Stop: 05/27/20 14:01 Last Admin: 05/27/20 14:14 Dose: 40 mg Documented by: Glycopyrrolate (Robinul) Confirm Administered Dose 1 mg .ROUTE .STK-MED ONE Stop: 05/22/20 10:38 Heparin Sodium (Porcine) (Heparin Sodium) 5,000 units SUBCUT Q12H [facility] Last Admin: 05/27/20 07:58 Dose: 5,000 units Documented by: Hydromorphone HCl (Dilaudid Baggage Checker 15 Mg In Ns 30 Ml) 0 mg IV ASDIRECTED PRN; Protocol PRN Reason: Pain Last Admin: 05/24/20 19:31 Dose: 15 mg Documented by: Ketamine HCl 50 mg/ Sodium (Chloride) 50 mls @ 12.6 mls/hr IV ASDIRECTED [facility] Magnesium Sulfate 2 gm/ Sodium (Chloride) 104 mls @ 208 mls/hr IV ASDIRECTED [facility] Magnesium Sulfate 3 gm/ Sodium (Chloride) 256 mls @ 32 mls/hr IV ONETIME ONE Stop: 05/22/20 15:59 Last Admin: 05/22/20 14:53 Dose: 32 mls/hr Documented by: Dextrose/Lactated Ringer's (Dextrose 5%-Lactated Ringers) 1,000 mls @ 100 mls/hr IV ASDIRECTED [facility] Last Admin: 05/22/20 10:11 Dose: 100 mls/hr Documented by: Cefoxitin Sodium 2 gm/ Sodium (Chloride) 50 mls @ 100 mls/hr IV ONETIME ONE Stop: 05/22/20 09:59 Last Admin: 05/22/20 11:30 Dose: 100 mls/hr Documented by: Dextrose/Lactated Ringer's (Dextrose 5%-Lactated Ringers) 1,000 mls @ 175.004 mls/hr IV ASDIRECTED [facility] Last Admin: 05/23/20 04:55 Dose: 175.004 mls/hr Documented by: Multivitamins/Minerals 10 ml/Thiamine HCl 200 mg/ Zinc 1 ml / Dextrose/Lactated Ringer's 1,013 mls @ 175 mls/hr IV DAILY@1600 [facility] Last Admin: 05/22/20 16:28 Dose: 175 mls/hr Documented by: Cefoxitin Sodium 2 gm/ Sodium (Chloride) 50 mls @ 100 mls/hr IV Q6H [facility] Stop: 05/23/20 23:29 Last Admin: 05/23/20 22:25 Dose: 100 mls/hr Documented by: Dextrose/Lactated Ringer's (Dextrose 5%-Lactated Ringers) 1,000 mls @ 40 mls/hr IV ASDIRECTED [facility] Last Infusion: 05/25/20 17:00 Dose: Infused Documented by: Multivitamins/Minerals 10 ml/Thiamine HCl 200 mg/ Zinc 1 ml / Dextrose/Lactated Ringer's 1,013 mls @ 100 mls/hr IV DAILY@1600 [facility] Last Admin: 05/25/20 15:44 Dose: 100 mls/hr Documented by: Potassium Chloride 20 meq/Lidocaine HCl 2 ml/ Sodium Chloride 112 mls @ 50 mls/hr IV Q2H [facility] Potassium Chloride 20 meq/ (Premix) 100 mls @ 50 mls/hr IV ONETIME ONE Stop: 05/26/20 07:38 Last Admin: 05/26/20 05:59 Dose: 50 mls/hr Documented by: Potassium Chloride 20 meq/Lidocaine HCl 2 ml/ Sodium Chloride 112 mls @ 56 mls/hr IV Q2H [facility] Stop: 05/26/20 12:59 Last Admin: 05/26/20 11:25 Dose: 56 mls/hr Documented by: Dextrose/Lactated Ringer's (Dextrose 5%-Lactated Ringers) 1,000 mls @ 40 mls/hr IV ASDIRECTED [facility] Potassium Chloride 20 meq/Lidocaine HCl 2 ml/ Sodium Chloride 112 mls @ 56 mls/hr IV Q2H [facility] Stop: 05/27/20 11:59 Last Admin: 05/27/20 11:50 Dose: 56 mls/hr Documented by: Sodium Chloride (Normal Saline) 100 mls @ 4 mls/sec IV ASDIRECTED [facility] Stop: 05/27/20 10:31 Last Admin: 05/27/20 10:50 Dose: 4 mls/sec Documented by: Vancomycin HCl 1.3 gm/ Sodium (Chloride) 250 mls @ 167 mls/hr IV ONETIME ONE Stop: 05/27/20 19:29 Last Admin: 05/27/20 18:06 Dose: 167 mls/hr Documented by: Iopamidol (Isovue-300 (61%)) 50 ml PO ASDIRECTED [facility] Stop: 05/23/20 03:46 Last Admin: 05/23/20 04:22 Dose: 50 ml Documented by: Iopamidol (Isovue-370 (76%)) 100 ml IV . DIRECTED [facility] Stop: 05/27/20 10:31 Last Admin: 05/27/20 10:50 Dose: 100 ml Documented by: Ketamine HCl (Ketalar) 21 mg IV ASDIRECTED [facility] Lidocaine HCl (Xylocaine-Mpf 1%) 2 ml INJECT ONETIME ONE Stop: 05/26/20 05:41 Last Admin: 05/26/20 05:59 Dose: 2 ml Documented by: Lidocaine/Epinephrine (Xylocaine 1% With Epinephrine 1:100,000) Confirm Administered Dose 50 ml .ROUTE .STK-MED ONE Stop: 05/24/20 06:51 Last Admin: 05/24/20 08:20 Dose: 14 ml Documented by: Meropenem (Merrem) Confirm Administered Dose 500 mg .ROUTE .ST-MED ONE Stop: 05/22/20 12:32 Last Admin: 05/22/20 12:35 Dose: 500 mg Documented by: Meropenem (Merrem) Confirm Administered Dose 500 mg .ROUTE .STK-[facility] ONE Stop: 05/24/20 06:51 Last Admin: 05/24/20 08:20 Dose: 500 mg Documented by: Miscellaneous Information (Remove Patch) 1 ea TRDERM ONETIME ONE Stop: 05/24/20 10:01 Last Admin: 05/24/20 15:39 Dose: Not Given Documented by: Naloxone HCl (Narcan) 0.1 mg IV ASDIRECTED PRN PRN Reason: decreased respiratory rate Neostigmine Methylsulfate (Neostigmine) Confirm Administered Dose 5 mg .ROUTE .STK-MED ONE Stop: 05/22/20 10:38 Scopolamine Patch (Check) 1 each TOP DAILY [facility] Stop: 05/24/20 09:01 Last Admin: 05/24/20 11:38 Dose: Not Given Documented by: Ondansetron HCl (Zofran) Confirm Administered Dose 4 mg .ROUTE .STK-MED ONE Stop: 05/22/20 10:38 Pantoprazole Sodium (Protonix Iv) 40 mg IVPUSH Q24H [facility] Last Admin: 05/22/20 16:27 Dose: 40 mg Documented by: Potassium Chloride (Potassium Chloride Solution) 40 meq PO BID [facility] Stop: 05/27/20 23:59 Last Admin: 05/27/20 20:50 Dose: 40 meq Documented by: Propofol (Diprivan 20 Ml) Confirm Administered Dose 200 mg .ROUTE .STK-MED ONE Stop: 05/22/20 10:38 Propofol (Diprivan 20 Ml) Confirm Administered Dose 200 mg .ROUTE .STK-MED ONE Stop: 05/24/20 07:47 Propofol (Diprivan 20 Ml) Confirm Administered Dose 200 mg .ROUTE .STK-MED ONE Stop: 05/24/20 08:19 Rocuronium [place] (Zemuron) Confirm Administered Dose 50 mg .ROUTE .STK-MED ONE Stop: 05/22/20 10:38 Scopolamine (Transderm-Scop) 1.5 mg TOP ONETIME ONE Stop: 05/22/20 08:36 Last Admin: 05/22/20 09:16 Dose: 1.5 mg Documented by: Sodium Chloride (Saline Flush) 10 ml FLUSH ONETIME ONE Stop: 05/27/20 10:24 Last Admin: 05/27/20 10:50 Dose: 10 ml Documented by: Succinylcholine Chloride (Quelicin) Confirm Administered Dose 200 mg .ROUTE .STK-MED ONE Stop: 05/22/20 10:38 Vancomycin HCl (Vancomycin) 1 gm IV .PHARMACY TO DOSE [facility] Stop: 05/27/20 16:01 - Exam Quality Assessment: Supplemental Oxygen, DVT Prophylaxis General: Alert, Oriented, Cooperative, Mild Distress Lungs: Normal Respiratory Effort, Rales. No: Crackles, Rhonchi, Wheezing Cardiovascular: Regular Rate, Regular Rhythm, No Murmurs GI/Abdominal Exam: Soft, Non-Tender, No Organomegaly, No Distention Extremities: Non-Tender, No Pedal Edema Sepsis Event Note - Evaluation Sepsis Screening Result: No Definite Risk - Focused Exam Vital Signs: Vital Signs Temp Temp Pulse Resp BP BP Pulse Ox 05/28/20 11:33 98 F 116 H 18 92/59 L 94 L 05/28/20 06:40 100 16 97 05/28/20 06:26 103 H 20 94/49 L 88 L 05/28/20 02:35 99.3 F 110 H 22 H 82/48 L 80 L Consult PN Assessment/Plan Procedures: Procedures CULTURE SCREEN ONLY (04/15/20) EGD BIOPSY SINGLE/MULTIPLE (04/15/20) Problem List Initiated/Reviewed/Updated: Yes My Orders Last 24 Hours: My Active Orders 05/27/20 15:46 Blood Culture x2 Reflex Set [OM.PC] Urgent 05/27/20 16:00 CULTURE BLOOD [BC] Stat Enoxaparin [Lovenox] 70 mg SUBCUT Q12H Levofloxacin/Dextrose 5%-Water [Levaquin in D5W 750 MG/150 ML] 750 mg Premix Bag 1 bag IV Q24H 05/27/20 16:05 CULTURE BLOOD [BC] Stat 05/27/20 17:30 Piperacillin/Tazobactam/Dext [Zosyn in Dextrose Iso-Osmotic 3.375 GM] 3.375 gm Premix Bag 1 bag IV Q6H 05/27/20 21:00 Lactobacillus Rhamnosus GG [Culturelle] 1 cap PO BID 05/28/20 06:00 Vancomycin 1 gm Sodium Chloride 0.9% [Normal Saline] 250 ml IV Q12H 05/29/20 09:00 Apixaban [Eliquis] 10 mg PO BID Plan: ASSESSMENT AND RECOMMENDATIONS BILATERAL PULMONARY EMBOLI-no prior history of deep vein thrombosis or pulmonary emboli. CT scan did document bilateral small pulmonary emboli. Likely a contributing factor to her hypoxic respiratory compromise. -Lovenox 70 mg subcu every 12 hours, discontinue tomorrow -Requests 10 mg p.o. twice daily for 7 days, start in a.m. BILATERAL PULMONARY INFILTRATES-CT scan shows bilateral groundglass infiltrates with areas of consolidation. She has a known history of COVID-19 infection occurring 2-1/2 months ago. Currently has normal white blood cell count and no significant temperature elevation. Possible viral infection versus bacterial. -Blood cultures pending -Initiate broad-spectrum antibiotic therapy for possible healthcare associated pneumonia; vancomycin, levofloxacin, and Zosyn HYPOXIC RESPIRATORY FAILURE-requiring increasing levels of supplemental oxygen to maintain adequate oxygenation. No significant improvement noted thus far with diuresis. Likely secondary to pulmonary emboli and bilateral pulmonary infiltrates. -Nebulizer therapy as needed -Supplemental oxygen as needed STATUS POST ESOPHAGOGASTRECTOMY AND CREATION OF RJ-EN-Y ESOPHAGOJEJUNOSTOMY -Postoperative care per Dr. Wray
[2020-05-28] MEDS: Levofloxacin/Dextrose 5%-Water 750 MG in Premix Bag 1 BAG IV SCH (15:29)
[2020-05-28] MEDS: Pantoprazole 40 MG Delayed-Release Granules 1 Packet PO SCH (15:35)
[2020-05-28] MEDS: ARIPiprazole 10 MG Tab PO SCH (21:51)
[2020-05-28] MEDS: Topiramate 100 MG Tab PO SCH (21:51)
[2020-05-29] MEDS: ClonazePAM 1 MG Tab PO SCH ×5 (00:48→23:46)
[2020-05-29] MEDS: Acetaminophen/HYDROcodone 325-10 MG Tab PO PRN (04:30)
[2020-05-29] MEDS ORDERED: Apixaban 5 MG Tab PO ONE (05:00)
[2020-05-29] MEDS: Piperacillin/Tazobactam/Dext 3.375 GM in Premix Bag 1 BAG IV SCH ×6 (05:33→23:04)
[2020-05-29] MEDS: Albuterol/Ipratropium 3.0-0.5 MG/3 ML Neb Soln INH SCH ×4 (07:22→20:29)
[2020-05-29] MEDS: Furosemide 20 MG Tab PO SCH (08:14)
[2020-05-29] MEDS: Celecoxib 200 MG Cap PO SCH ×2 (08:14→20:31)
[2020-05-29] MEDS: Hypromellose 0.3% Ophth Soln 15 ML Bottle EYEBOTH PRN ×2 (08:14→23:50)
[2020-05-29] MEDS: Lactobacillus Rhamnosus GG (Probiotic) Cap PO SCH ×2 (08:14→20:31)
[2020-05-29] MEDS: Nicotine 14 MG/24 Hr Patch TRDERM SCH (08:15)
[2020-05-29] MEDS: Acetaminophen/HYDROcodone 325-5 MG Tab PO PRN ×3 (08:24→20:32)
--- NOTE | 2020-05-29 11:10 | PN ---
DATE OF SERVICE: 05/29/2020 SUBJECTIVE: Andreia remains to be quite sedated, which limits her ambulation and use of incentive spirometer. She has been afebrile. Oximetry remains between 90% to 98% on 3 L. Oral intake 900. Urine output 2024. Reports no abdominal pain, but reports chronic back pain. REVIEW OF SYSTEMS: Remainder of review of systems negative for any pertinent positives and negatives. OBJECTIVE: GENERAL: Andreia is a 49-year-old female. She is quite sleepy. VITAL SIGNS: TPR is 96.5, 108, 16, blood pressure 100/57. HEENT: Negative. NECK: Supple. HEART: Regular rate and rhythm. LUNGS: Remain to have decreased breath sounds. There are rhonchi. Right is decreased more than left. ABDOMEN: Aquacel dressing is on. Abdominal binder is on. EXTREMITIES: Without peripheral edema. ASSESSMENT: 1. Bilateral pulmonary embolism. 2. Hypoxia. 3. 05/24/2020, delayed primary closure for open abdominal incision. 4. Exploratory laparotomy with esophagogastrectomy with Clarence-en-Y esophagojejunostomy, then repair of recurrent esophageal diaphragmatic hernia and excision of atypical skin lesion suprapubic area. 5. Date of procedure: 05/22/2020. Surgeon: Kai Wray MD. PLAN: 1. Evaluate for home O2. 2. Order written to discharge planning for home O2. Plan discharge in a.m. Check CBC, CMP, mag, phos, and BNP in a.m. 3. [place] decreased due to increased somnolence to 5 mg/325 q.6 hours, then nursing staff will be able to give her, her muscle relaxant, which they have not been able to give due to increased drowsiness. 4. We will evaluate p.r.n. or in a.m. Gemma Saab PA-C /[id number]
[2020-05-29] MEDS: Cyclobenzaprine 10 MG Tab PO PRN (12:26)
--- NOTE | 2020-05-29 13:29 | PCM.PN ---
- General Info Date of Service: 05/29/20 Subjective Update: Patient a little anxious this AM about possible discharge and making sure we were in touch with her mother She is at or near baseline for oxygen need Notes she feels better than at time of admission. Functional Status: Reports: Pain Controlled, Tolerating Diet, Ambulating, Urinating. Denies: New Symptoms, Incentive Spirometry - Review of Systems General: Reports: No Symptoms HEENT: Reports: No Symptoms Pulmonary: Reports: No Symptoms Cardiovascular: Reports: No Symptoms Gastrointestinal: Reports: No Symptoms Genitourinary: Reports: No Symptoms Musculoskeletal: Reports: No Symptoms Skin: Reports: No Symptoms Neurological: Reports: No Symptoms Psychiatric: Reports: Anxiety - Patient Data Vitals - Most Recent: Last Vital Signs Temp 97.3 F 05/29/20 10:42 Pulse 110 H 05/29/20 11:07 Resp 18 05/29/20 10:42 BP 98/56 L 05/29/20 10:42 Pulse Ox 96 05/29/20 10:42 Weight - Most Recent: 144 lb I&O - Last 24 Hours: Intake & Output 05/28/20 05/29/20 05/29/20 22:59 06:59 14:59 Intake Total 650 350 350 Output Total 2249 738 1946 Balance -395 130 -650 Lab Results Last 24 Hours: Laboratory Results - last 24 hr 05/22/20 05/22/20 05/29/20 Range/Units 09:00 09:00 04:00 WBC 11.8 H (4.5-11.0) K/uL RBC 3.31 (3.30-5.50) M/uL Hgb 10.1 L (12.0-15.0) g/dL Hct 33.6 L (36.0-48.0) % MCV 102 H (80-98) fL MCH 31 (27-31) pg MCHC 30 L (32-36) % Plt Count 307 (150-400) K/uL Sodium (140-148) mmol/L Potassium (3.6-5.2) mmol/L Chloride (100-108) mmol/L Carbon Dioxide (21-32) mmol/L Anion Gap (5.0-14.0) mmol/L BUN (7-18) mg/dL Creatinine (0.6-1.0) mg/dL Est Cr Clr Drug Dosing mL/min Estimated GFR (MDRD) (>60) Glucose (74-106) mg/dL Calcium (8.5-10.1) mg/dL Phosphorus (2.5-4.9) mg/dL Magnesium (1.8-2.4) mg/dL Total Bilirubin (0.2-1.0) mg/dL AST (15-37) U/L ALT (12-78) U/L Alkaline Phosphatase (46-116) U/L NT-Pro-B Natriuret Pep (5-125) pg/mL Total Protein (6.4-8.2) g/dL Albumin (3.4-5.0) g/dL Globulin (2.3-3.5) g/dL Albumin/Globulin Ratio (1.2-2.2) Serum Copper 143 (80-158) ug/dL Zinc 90 (44-115) ug/dL 05/29/20 Range/Units 04:00 WBC (4.5-11.0) K/uL RBC (3.30-5.50) M/uL Hgb (12.0-15.0) g/dL Hct (36.0-48.0) % MCV (80-98) fL MCH (27-31) pg MCHC (32-36) % Plt Count (150-400) K/uL Sodium 140 (140-148) mmol/L Potassium 3.8 (3.6-5.2) mmol/L Chloride 106 (100-108) mmol/L Carbon Dioxide 24 (21-32) mmol/L Anion Gap 10.5 (5.0-14.0) mmol/L BUN 8 (7-18) mg/dL Creatinine 0.8 (0.6-1.0) mg/dL Est Cr Clr Drug Dosing 60.43 mL/min Estimated GFR (MDRD) > 60 (>60) Glucose 72 L (74-106) mg/dL Calcium 8.4 L (8.5-10.1) mg/dL Phosphorus 4.4 (2.5-4.9) mg/dL Magnesium 2.0 (1.8-2.4) mg/dL Total Bilirubin 0.4 (0.2-1.0) mg/dL AST 33 (15-37) U/L ALT 36 (12-78) U/L Alkaline Phosphatase 154 H (46-116) U/L NT-Pro-B Natriuret Pep 117 (5-125) pg/mL Total Protein 5.6 L (6.4-8.2) g/dL Albumin 1.8 L (3.4-5.0) g/dL Globulin 3.8 H (2.3-3.5) g/dL Albumin/Globulin Ratio 0.5 L (1.2-2.2) Serum Copper (80-158) ug/dL Zinc (44-115) ug/dL Khoi Results Last 24 Hours: Microbiology 05/27/20 16:05 Aerobic Blood Culture - Preliminary Blood - Venous - Lab Draw NO GROWTH AFTER 1 DAY Anaerobic Blood Culture - Preliminary NO GROWTH AFTER 1 DAY 05/27/20 16:00 Aerobic Blood Culture - Preliminary Blood - Venous NO GROWTH AFTER 1 DAY Anaerobic Blood Culture - Preliminary NO GROWTH AFTER 1 DAY Med Orders - Current: Current Medications Hydrocodone Bitart/Acetaminophen ([place] 325-5 Mg) 1 tab PO QID PRN PRN Reason: Pain Last Admin: 05/29/20 08:24 Dose: 1 tab Documented by: Albuterol/Ipratropium (Duoneb 3.0-0.5 Mg/3 Ml) 3 ml INH QIDRT JENNIFER Last Admin: 05/29/20 11:07 Dose: 3 ml Documented by: Albuterol/Ipratropium (Duoneb 3.0-0.5 Mg/3 Ml) 3 ml INH ASDIRECTED PRN PRN Reason: BREATHING Last Admin: 05/27/20 03:14 Dose: 3 ml Documented by: Apixaban (Eliquis) 10 mg PO Q12H [facility] Stop: 06/04/20 18:01 Aripiprazole (Abilify) 10 mg PO BEDTIME [facility] Last Admin: 05/28/20 21:51 Dose: 10 mg Documented by: Artificial Tears (Genteal Mild To Moderate Ophth Soln) 0 ml EYEBOTH Q1H PRN PRN Reason: Dry Eyes Last Admin: 05/29/20 08:14 Dose: 1 applic Documented by: Benzocaine/Menthol (Cepacol Sore Throat) 1 lozenge MUCMEM Q2H PRN PRN Reason: Sore Throat Last Admin: 05/23/20 23:02 Dose: 1 kailey Documented by: Celecoxib (Celebrex) 200 mg PO BID [facility] Last Admin: 05/29/20 08:14 Dose: 200 mg Documented by: Clonazepam (Klonopin) 1 mg PO QID [facility] Last Admin: 05/29/20 10:34 Dose: 1 mg Documented by: Cyclobenzaprine HCl (Flexeril) 10 mg PO Q8H PRN PRN Reason: Muscle Spasm Last Admin: 05/29/20 12:26 Dose: 10 mg Documented by: Diphenhydramine HCl (Benadryl) 50 mg IVPUSH Q4H PRN PRN Reason: ITCHING Furosemide (Lasix) 20 mg PO DAILY [facility] Last Admin: 05/29/20 08:14 Dose: 20 mg Documented by: Hydroxyzine HCl (Vistaril) 100 mg IM Q4H PRN PRN Reason: pain Last Admin: 05/28/20 02:58 Dose: 100 mg Documented by: Piperacillin/Tazobactam/ (Dextrose 3.375 gm/ Premix) 50 mls @ 100 mls/hr IV Q6H [facility] Last Admin: 05/29/20 10:35 Dose: 100 mls/hr Documented by: Levofloxacin/Dextrose 750 mg/ (Premix) 150 mls @ 100 mls/hr IV Q24H [facility] Last Admin: 05/28/20 15:29 Dose: 100 mls/hr Documented by: Vancomycin HCl 1 gm/ Sodium (Chloride) 250 mls @ 167 mls/hr IV Q12H [facility] Last Admin: 05/29/20 06:21 Dose: 167 mls/hr Documented by: Labetalol HCl (Normodyne) 5 mg IVPUSH Q5M PRN PRN Reason: SBP over 160 OR DBP over 95 Lactobacillus Rhamnosus (Culturelle) 1 cap PO BID [facility] Last Admin: 05/29/20 08:14 Dose: 1 cap Documented by: Metoclopramide HCl (Reglan) 10 mg IVPUSH Q6H PRN PRN Reason: NAUSEA NOT CONTROL BY ZOFRAN Nicotine (Habitrol) 14 mg TRDERM DAILY [facility] Last Admin: 05/29/20 08:15 Dose: 14 mg Documented by: Ondansetron HCl (Zofran) 4 mg IVPUSH Q4H PRN PRN Reason: Nausea/Vomiting Ondansetron HCl (Zofran Odt) 4 mg PO Q4H PRN PRN Reason: Nausea/Vomiting Pantoprazole Sodium (Protonix Granules) 40 mg PO Q24H [facility] Last Admin: 05/28/20 15:35 Dose: 40 mg Documented by: Topiramate (Topamax) 200 mg PO BEDTIME [facility] Last Admin: 05/28/20 21:51 Dose: 200 mg Documented by: Discontinued Medications Acetaminophen (Tylenol Extra Strength) 1,000 mg PO ONETIME ONE Stop: 05/22/20 08:36 Last Admin: 05/22/20 09:16 Dose: 1,000 mg Documented by: Acetaminophen (Tylenol Extra Strength) 1,000 mg PO Q8H [facility] Last Admin: 05/27/20 23:46 Dose: 1,000 mg Documented by: Acetaminophen (Tylenol Extra Strength) 500 mg PO Q8H PRN PRN Reason: MILD PAIN Hydrocodone Bitart/Acetaminophen ([place] 325-10 Mg) 1 tab PO Q4H PRN PRN Reason: PAIN Last Admin: 05/28/20 06:36 Dose: 1 tab Documented by: Hydrocodone Bitart/Acetaminophen ([place] 325-10 Mg) 1 tab PO Q4H PRN PRN Reason: Pain Last Admin: 05/29/20 04:30 Dose: 1 tab Documented by: Albuterol/Ipratropium (Duoneb 3.0-0.5 Mg/3 Ml) 3 ml NEB ONETIME ONE Stop: 05/22/20 09:31 Last Admin: 05/22/20 10:32 Dose: 3 ml Documented by: Apixaban (Eliquis) 10 mg PO ONETIME ONE Stop: 05/29/20 05:01 Last Admin: 05/29/20 05:37 Dose: 10 mg Documented by: Bisacodyl (Dulcolax) 10 mg PO BID [facility] Last Admin: 05/25/20 20:11 Dose: 10 mg Documented by: Bupivacaine HCl (Marcaine 0.5%) Confirm Administered Dose 50 ml .ROUTE .STK-MED ONE Stop: 05/24/20 06:51 Last Admin: 05/24/20 08:20 Dose: 14 ml Documented by: Calcium Gluconate (Calcium Gluconate) 1 gm IVPUSH ONETIME PRN PRN Reason: SX MAGNESIUM TOXICITY Stop: 05/22/20 23:59 Ropivacaine 33 ml/Dexamethasone 8 mg/Epinephrine HCl 0.4 mg/ Sodium Chloride 44.6 ml 0 ml NERVRT ASDIRECTED [facility] Last Admin: 05/22/20 12:10 Dose: 80 syringe Documented by: Ropivacaine 33 ml/Dexamethasone 8 mg/Epinephrine HCl 0.4 mg/ Sodium Chloride 44.6 ml 0 ml NERVRT ASDIRECTED [facility] Last Admin: 05/24/20 08:20 Dose: 80 syringe Documented by: Cyanocobalamin (Vitamin B12) 1,000 mcg IM ONETIME ONE Stop: 05/24/20 09:01 Last Admin: 05/24/20 11:38 Dose: 1,000 mcg Documented by: Dexamethasone (Decadron) Confirm Administered Dose 4 mg .ROUTE .STK-MED ONE Stop: 05/22/20 10:38 Docusate Sodium (Colace) 100 mg PO BID [facility] Last Admin: 05/25/20 20:11 Dose: 100 mg Documented by: Enoxaparin Sodium (Lovenox) 70 mg SUBCUT Q12H [facility] Stop: 05/29/20 03:00 Last Admin: 05/28/20 15:34 Dose: 70 mg Documented by: Fentanyl (Sublimaze) Confirm Administered Dose 250 mcg .ROUTE .STK-MED ONE Stop: 05/22/20 10:38 Fentanyl (Sublimaze) Confirm Administered Dose 100 mcg .ROUTE .STK-MED ONE Stop: 05/22/20 13:17 Fentanyl (Sublimaze) Confirm Administered Dose 100 mcg .ROUTE .STK-MED ONE Stop: 05/24/20 07:48 Furosemide (Lasix) 20 mg IVPUSH ONETIME ONE Stop: 05/25/20 16:31 Last Admin: 05/25/20 16:52 Dose: 20 mg Documented by: Furosemide (Lasix) 20 mg IVPUSH ONETIME ONE Stop: 05/26/20 05:34 Last Admin: 05/26/20 05:52 Dose: 20 mg Documented by: Furosemide (Lasix) 20 mg IVPUSH ONETIME ONE Stop: 05/26/20 06:44 Last Admin: 05/26/20 07:30 Dose: 20 mg Documented by: Furosemide (Lasix) 40 mg IVPUSH ONETIME ONE Stop: 05/26/20 14:01 Last Admin: 05/26/20 14:00 Dose: 40 mg Documented by: Furosemide (Lasix) 40 mg IVPUSH BID@0900,1400 [facility] Stop: 05/27/20 14:01 Last Admin: 05/27/20 14:14 Dose: 40 mg Documented by: Glycopyrrolate (Benjamin) Confirm Administered Dose 1 mg .ROUTE .STK-MED ONE Stop: 05/22/20 10:38 Heparin Sodium (Porcine) (Heparin Sodium) 5,000 units SUBCUT Q12H [facility] Last Admin: 05/27/20 07:58 Dose: 5,000 units Documented by: Hydromorphone HCl (Dilaudid Icing And Glaze Maker 15 Mg In Ns 30 Ml) 0 mg IV ASDIRECTED PRN; Protocol PRN Reason: Pain Last Admin: 05/24/20 19:31 Dose: 15 mg Documented by: Ketamine HCl 50 mg/ Sodium (Chloride) 50 mls @ 12.6 mls/hr IV ASDIRECTED [facility] Magnesium Sulfate 2 gm/ Sodium (Chloride) 104 mls @ 208 mls/hr IV ASDIRECTED [facility] Magnesium Sulfate 3 gm/ Sodium (Chloride) 256 mls @ 32 mls/hr IV ONETIME ONE Stop: 05/22/20 15:59 Last Admin: 05/22/20 14:53 Dose: 32 mls/hr Documented by: Dextrose/Lactated Ringer's (Dextrose 5%-Lactated Ringers) 1,000 mls @ 100 mls/hr IV ASDIRECTED [facility] Last Admin: 05/22/20 10:11 Dose: 100 mls/hr Documented by: Cefoxitin Sodium 2 gm/ Sodium (Chloride) 50 mls @ 100 mls/hr IV ONETIME ONE Stop: 05/22/20 09:59 Last Admin: 05/22/20 11:30 Dose: 100 mls/hr Documented by: Dextrose/Lactated Ringer's (Dextrose 5%-Lactated Ringers) 1,000 mls @ 175.004 mls/hr IV ASDIRECTED [facility] Last Admin: 05/23/20 04:55 Dose: 175.004 mls/hr Documented by: Multivitamins/Minerals 10 ml/Thiamine HCl 200 mg/ Zinc 1 ml / Dextrose/Lactated Ringer's 1,013 mls @ 175 mls/hr IV DAILY@1600 [facility] Last Admin: 05/22/20 16:28 Dose: 175 mls/hr Documented by: Cefoxitin Sodium 2 gm/ Sodium (Chloride) 50 mls @ 100 mls/hr IV Q6H [facility] Stop: 05/23/20 23:29 Last Admin: 05/23/20 22:25 Dose: 100 mls/hr Documented by: Dextrose/Lactated Ringer's (Dextrose 5%-Lactated Ringers) 1,000 mls @ 40 mls/hr IV ASDIRECTED [facility] Last Infusion: 05/25/20 17:00 Dose: Infused Documented by: Multivitamins/Minerals 10 ml/Thiamine HCl 200 mg/ Zinc 1 ml / Dextrose/Lactated Ringer's 1,013 mls @ 100 mls/hr IV DAILY@1600 JENNIFER Last Admin: 05/25/20 15:44 Dose: 100 mls/hr Documented by: Potassium Chloride 20 meq/Lidocaine HCl 2 ml/ Sodium Chloride 112 mls @ 50 mls/hr IV Q2H [facility] Potassium Chloride 20 meq/ (Premix) 100 mls @ 50 mls/hr IV ONETIME ONE Stop: 05/26/20 07:38 Last Admin: 05/26/20 05:59 Dose: 50 mls/hr Documented by: Potassium Chloride 20 meq/Lidocaine HCl 2 ml/ Sodium Chloride 112 mls @ 56 mls/hr IV Q2H [facility] Stop: 05/26/20 12:59 Last Admin: 05/26/20 11:25 Dose: 56 mls/hr Documented by: Dextrose/Lactated Ringer's (Dextrose 5%-Lactated Ringers) 1,000 mls @ 40 mls/hr IV ASDIRECTED [facility] Potassium Chloride 20 meq/Lidocaine HCl 2 ml/ Sodium Chloride 112 mls @ 56 mls/hr IV Q2H [facility] Stop: 05/27/20 11:59 Last Admin: 05/27/20 11:50 Dose: 56 mls/hr Documented by: Sodium Chloride (Normal Saline) 100 mls @ 4 mls/sec IV ASDIRECTED [facility] Stop: 05/27/20 10:31 Last Admin: 05/27/20 10:50 Dose: 4 mls/sec Documented by: Vancomycin HCl 1.3 gm/ Sodium (Chloride) 250 mls @ 167 mls/hr IV ONETIME ONE Stop: 05/27/20 19:29 Last Admin: 05/27/20 18:06 Dose: 167 mls/hr Documented by: Iopamidol (Isovue-300 (61%)) 50 ml PO ASDIRECTED [facility] Stop: 05/23/20 03:46 Last Admin: 05/23/20 04:22 Dose: 50 ml Documented by: Iopamidol (Isovue-370 (76%)) 100 ml IV . DIRECTED JENNIFER Stop: 05/27/20 10:31 Last Admin: 05/27/20 10:50 Dose: 100 ml Documented by: Ketamine HCl (Ketalar) 21 mg IV ASDIRECTED [facility] Lidocaine HCl (Xylocaine-Mpf 1%) 2 ml INJECT ONETIME ONE Stop: 05/26/20 05:41 Last Admin: 05/26/20 05:59 Dose: 2 ml Documented by: Lidocaine/Epinephrine (Xylocaine 1% With Epinephrine 1:100,000) Confirm Administered Dose 50 ml .ROUTE .STK-MED ONE Stop: 05/24/20 06:51 Last Admin: 05/24/20 08:20 Dose: 14 ml Documented by: Meropenem (Merrem) Confirm Administered Dose 500 mg .ROUTE .STK-MED ONE Stop: 05/22/20 12:32 Last Admin: 05/22/20 12:35 Dose: 500 mg Documented by: Meropenem (Merrem) Confirm Administered Dose 500 mg .ROUTE .STK-MED ONE Stop: 05/24/20 06:51 Last Admin: 05/24/20 08:20 Dose: 500 mg Documented by: Miscellaneous Information (Remove Patch) 1 ea TRDERM ONETIME ONE Stop: 05/24/20 10:01 Last Admin: 05/24/20 15:39 Dose: Not Given Documented by: Naloxone HCl (Narcan) 0.1 mg IV ASDIRECTED PRN PRN Reason: decreased respiratory rate Neostigmine Methylsulfate (Neostigmine) Confirm Administered Dose 5 mg .ROUTE .STK-MED ONE Stop: 05/22/20 10:38 Scopolamine Patch (Check) 1 each TOP DAILY [facility] Stop: 05/24/20 09:01 Last Admin: 05/24/20 11:38 Dose: Not Given Documented by: Ondansetron HCl (Zofran) Confirm Administered Dose 4 mg .ROUTE .STK-MED ONE Stop: 05/22/20 10:38 Pantoprazole Sodium (Protonix Iv) 40 mg IVPUSH Q24H [facility] Last Admin: 05/22/20 16:27 Dose: 40 mg Documented by: Potassium Chloride (Potassium Chloride Solution) 40 meq PO BID JENN[facility]ER Stop: 05/27/20 23:59 Last Admin: 05/27/20 20:50 Dose: 40 meq Documented by: Propofol (Diprivan 20 Ml) Confirm Administered Dose 200 mg .ROUTE .STK-MED ONE Stop: 05/22/20 10:38 Propofol (Diprivan 20 Ml) Confirm Administered Dose 200 mg .ROUTE .STK-MED ONE Stop: 05/24/20 07:47 Propofol (Diprivan 20 Ml) Confirm Administered Dose 200 mg .ROUTE .STK-MED ONE Stop: 05/24/20 08:19 Rocuronium [place] (Zemuron) Confirm Administered Dose 50 mg .ROUTE .STK-MED ONE Stop: 05/22/20 10:38 Scopolamine (Transderm-Scop) 1.5 mg TOP ONETIME ONE Stop: 05/22/20 08:36 Last Admin: 05/22/20 09:16 Dose: 1.5 mg Documented by: Sodium Chloride (Saline Flush) 10 ml FLUSH ONETIME ONE Stop: 05/27/20 10:24 Last Admin: 05/27/20 10:50 Dose: 10 ml Documented by: Succinylcholine Chloride (Quelicin) Confirm Administered Dose 200 mg .ROUTE .STK-MED ONE Stop: 05/22/20 10:38 Vancomycin HCl (Vancomycin) 1 gm IV .PHARMACY TO DOSE [facility] Stop: 05/27/20 16:01 - Exam Quality Assessment: Supplemental Oxygen (Weaning), DVT Prophylaxis General: Alert, Oriented, Cooperative, No Acute Distress HEENT: Pupils Equal, EOMI Lungs: Clear to Auscultation, Normal Respiratory Effort Cardiovascular: Regular Rate, Regular Rhythm, No Murmurs GI/Abdominal Exam: Normal Bowel Sounds Neurological: No New Focal Deficit Psy/Mental Status: Anxious Sepsis Event Note - Evaluation Sepsis Screening Result: Sepsis Risk - Focused Exam Vital Signs: Vital Signs Temp Pulse Resp BP Pulse Ox 05/29/20 11:07 110 H 05/29/20 10:42 97.3 F 105 H 18 98/56 L 96 05/29/20 07:30 96.5 F L 108 H 16 100/57 L 95 05/29/20 07:16 110 H 05/29/20 02:37 98.5 F 111 H 18 88/46 L 92 L - Problem List Review Problem List Initiated/Reviewed/Updated: Yes - Assessment Assessment:: HEENT No issues Cardiac No issues, stable post-operatively Pulmonary Patient stabilized, weaning off of oxygen Lungs sound pretty good. Bilateral PE noted, stable on lovenox - Starting eliquis - Pharmacy to assess for cost of Rx - Wean oxygen as able - Continue cares as we are - Anticipate D/C tomorrow Gastrointestinal patient is s/p esophagogastrectomy and RNY esophagojejunostomy - Management per Gen Surgery Heme/Anticoagulation ]- As above Renal/F/E/N - No issues
[2020-05-29] MEDS: Levofloxacin/Dextrose 5%-Water 750 MG in Premix Bag 1 BAG IV SCH (15:54)
[2020-05-29] MEDS: Pantoprazole 40 MG Delayed-Release Granules 1 Packet PO SCH (15:55)
[2020-05-29] MEDS: Apixaban 5 MG Tab PO SCH (19:29)
[2020-05-29] MEDS: ARIPiprazole 10 MG Tab PO SCH (20:31)
[2020-05-29] MEDS: Topiramate 100 MG Tab PO SCH (20:31)
[2020-05-29] MEDS ORDERED: Docusate Sodium 100 MG Cap PO PRN (23:38)
[2020-05-30] MEDS: Acetaminophen/HYDROcodone 325-5 MG Tab PO PRN ×2 (04:28→11:33)
[2020-05-30] MEDS: Piperacillin/Tazobactam/Dext 3.375 GM in Premix Bag 1 BAG IV SCH ×2 (04:32→11:27)
[2020-05-30] MEDS: Apixaban 5 MG Tab PO SCH (05:19)
[2020-05-30] MEDS: ClonazePAM 1 MG Tab PO SCH ×2 (05:43→09:14)
[2020-05-30] MEDS: Albuterol/Ipratropium 3.0-0.5 MG/3 ML Neb Soln INH SCH ×2 (07:20→10:53)
[2020-05-30] MEDS: Nicotine 14 MG/24 Hr Patch TRDERM SCH (09:09)
[2020-05-30] MEDS: Celecoxib 200 MG Cap PO SCH (09:09)
[2020-05-30] MEDS: Lactobacillus Rhamnosus GG (Probiotic) Cap PO SCH (09:09)
[2020-05-30] MEDS: Furosemide 20 MG Tab PO SCH (09:10)
--- NOTE | 2020-05-30 09:34 | PN ---
DATE OF SERVICE: 05/30/2020 ADDENDUM: Home oxygen therapy is recommended and required for Andreia Sinha a 49-year-old female who is currently postop and has had chronic respiratory failure, history of asthma. She has had COVID-19 virus, emphysema. She does have sleep apnea with use of a CPAP. She will be discharged today. Her saturations were 81% on room air at rest and she is requiring 2 L to 3 L of oxygen to maintain her oximetry levels above 90%. Gemma Saab PA-C /[id number]
[2020-05-30] MEDS: Benzocaine/Cetylpyridinium/Menthol Lozenge MUCMEM PRN (11:32)
--- NOTE | 2020-05-30 11:55 | DISCH ---
ADMISSION DIAGNOSES: 1. Gastroesophageal reflux disease refractory to medical management, status post laparoscopic Juliane. 2. Esophageal candidiasis. 3. Gastroesophageal reflux disease. 4. Mild intermittent asthma without complication. 5. Obstructive sleep apnea, on CPAP. 6. 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 7. Generalized anxiety disorder. 8. Fibromyalgia. 9. Chronic continuous use of opioids. 10.Chronic pain syndrome. 11.Chronic left-sided back pain. 12.Emphysema. 13.Status post COVID virus. DISCHARGE DIAGNOSES: 1. Exploratory laparotomy with: a. Esophagogastrectomy with Clarence-en-Y esophagojejunostomy. b. Repair of recurrent esophageal diaphragmatic hernia. c. Excision of atypical skin lesion of suprapubic area. d. Date of procedure 05/22/2020. Surgeon: Kai Wray MD. 2. Delayed primary closure for open abdominal incision on 05/24/2020. 3. Hypoxia. 4. Bilateral pulmonary embolism. HISTORY: Andreia Sinha is a 49-year-old female with symptoms of GERD refractory to medical management after a laparoscopic Juliane. After preoperative evaluation and discussion of possible risks and possible complications, she wished to proceed with surgical procedure. HOSPITAL COURSE: Andreia had her surgery on 05/22/2020 with a delayed primary closure on 05/24/2020. She was on IV [employer] medication and she required oxygen therapy. On 05/25/2020, she was changed to oral pain medication and due to pain contract, she was given hydrocodone 10/325 four times a day. On 05/26/2020, oxygen levels remained to be quite low. She had a consult on the with the hospitalist, and CT angiography of lungs showed diffuse bilateral ground-glass opacities and scattered small clots in the branching vessels in both lungs, more prominent in the lower lobes and blood clots thought to be either secondary postoperatively or from COVID virus. She was evaluated with respiratory therapist and did qualify for home O2 with her oximetry at 81% on room air at rest. Due to increased somnolence with routine medication and the hydrocodone at 10/325 every 4 hours, this was decreased. On the , her pain was well managed, her activity was good, vital signs remained stable, she was more alert and ambulating, and she was able to be discharged to home on 05/30/2020 with no complications. PHYSICAL EXAMINATION: GENERAL: Andreia Sinha is a pleasant 49-year-old female. VITAL SIGNS: Height is 4 feet 11 inches, weight is 144 pounds, and BMI is 29. TPR are 97.8, 92, and 20. Blood pressure 96/58, O2 by pulse oximetry is 98% on 3 L. HEENT: Negative. NECK: Supple. HEART: Regular rate and rhythm. LUNGS: Reveal to have rhonchi and decreased breath sounds but better air exchange than prior days. ABDOMEN: Aquacel dressings on. Abdominal binder is on. EXTREMITIES: Without peripheral edema. DISPOSITION: Discharged to home. CONDITION: Stable and improving. FOLLOWUP APPOINTMENT: With Gemma Saab PA-C, on 06/05/2020 at 10 a.m. She is to follow up with the dietitian on 06/05/2020 at 10:30 a.m. at [facility]. HOME MEDICATIONS: 1. Culturelle 1 capsule oral twice daily #60. 2. Eliquis 10 mg oral q.12 hours for 6-1/2 days, then 5 mg twice a day until 07/05/2020. She is to follow up with her primary care doctor before 07/05/2020. 3. Continue [place] 5/325 mg 4 times a day as needed for pain. To resume all of her home medications: 1. Rexulti 2 mg at bedtime. 2. ProAir 2 puffs every 4 hours p.r.n. shortness of breath. 3. Flexeril 10 mg oral at bedtime as needed for muscle spasms. 4. Voltaren gel 2 g topical 4 times as needed for pain. 5. Lexapro 10 mg oral at bedtime. 6. Flonase 2 sprays nasal as needed p.r.n. allergies. 7. Lasix 20 mg oral daily. 8. Imitrex 50 mg oral as needed p.r.n. migraine headaches. 9. Senna 17.2 mg twice daily. 10.Topamax 200 mg oral at bedtime. 11.Lipitor 10 mg oral at bedtime. 12.Clonazepam 1 mg oral 4 times a day. DISCHARGE INSTRUCTIONS: Diet: Step 2 gastric bypass diet with no cereal for 2 weeks. Activity: No lifting over 10 pounds for 6 weeks. Other activity: Walk 6 times daily inside your home. Driving: Do not drive for 1 week and while on narcotic pain medication. Shower/bathing: May shower. Notify provider if any fever, increased pain, nausea, or vomiting. Wound, keep site clean and dry. Take off Aquacel dressing in 3 days on Tuesday06/02/2020. Wear abdominal binder for 2 weeks and then as tolerated. Use incentive spirometer 10 times every hour while awake for 1 week. /[id number]
--- NOTE | 2020-06-01 10:44 | OR ---
DATE OF PROCEDURE: 05/22/2020 SURGEON: Kai Wray MD PREOPERATIVE DIAGNOSES: Recurrent hiatal hernia associated with coexisting gastroparesis and ongoing problems with severe heartburn and regurgitation. POSTOPERATIVE DIAGNOSES: 1. Recurrent hiatal hernia associated with coexisting gastroparesis and ongoing problems with severe heartburn and regurgitation. 2. Marked inflammation and scarring of the esophagogastric junction requiring esophagogastrectomy. 3. Atypical pigmented lesion in the suprapubic area. OPERATIVE PROCEDURES: 1. Exploratory laparotomy with: a. Esophagogastrectomy with Clarence-en-Y esophagojejunostomy (44242). b. Repair of recurrent paraesophageal diaphragmatic hernia (08586). 2. Excision of atypical pigmented skin lesions, suprapubic area with layered closure (06815, [id number]). ANESTHESIA: General. ALUMINUM MOLDING MACHINE OPERATOR: Gemma Saab PA-C INDICATIONS FOR PROCEDURE: This is a 49-year-old female presenting with recurrent hiatal hernia, status post previous Juliane fundoplication performed in [place], and was on upper endoscopy noted to have obvious gastroparesis. She had a gastric-emptying study, which was normal but a recent endoscopy showed a large amount of retained fluid and food within the stomach despite the patient having been n.p.o. for several hours. With this, she is having problems with recurrent heartburn as well as regurgitation. She has been unable to tolerate her CPAP due to this problem involving some areas of the stomach with subsequent regurgitation developing. After preoperative evaluation and discussion, the plan is to proceed with a resectional procedure, this being most likely high proximal gastrectomy with Clarence-en-Y reconstruction, which will more or less bypass the stomach involved with the gastroparesis and avoid the problems with reflux and regurgitation. Potential risks of procedure including bleeding, infection, and leaks from various GI tract closures as well as possibility of cardiopulmonary, septic, or hemorrhagic complications leading to were discussed, and the patient wishes to proceed. DETAILS OF PROCEDURE: The patient was taken to the operating room and placed in a supine position. After general endotracheal anesthesia was induced, Reaves catheter was inserted, and the abdomen prepped and draped. The patient was noted to have what appeared to be atypical skin lesion with dark pigmentation and variable borders in the suprapubic area. This was felt to best be excised. This was initially excised with a transversely oriented elliptical incision. This plus marginal length around this area was 2.1 cm, and the incision then closed with some 4-0 Vicryl stitch deep and a 5-0 Prolene skin stitch with the incision length being 3.5 cm. The attention was then taken to the primary problem with an upper midline incision being made from the xiphoid down to the level of the umbilicus. This was carried down through the full-thickness of abdominal wall. Upon entering the peritoneal cavity, there was quite a bit in a way of scarring in the area of the previous Juliane fundoplication. As this was taken down, it became evident that the proximal stomach would not be adequate for reanastomosis. This area is being extensively edematous and inflamed and the stomach deserosalized after takedown of the fundoplication. Given this, the distal-most esophagus was initially divided with AJ stapler and the remaining stomach consisting with the area of previous fundoplication was then excised along with the distal-most esophagus, all of this being accomplished with various thicknesses of the AJ buzz, and the specimen then delivered from the field. It was felt possibly could get a 28 mm EEA anastomosis to limit problems with stricture formation. Given this prior to the proximal esophageal division, the anvil of a 28 mm EEA stapler was passed into the gastrotomy, and the anvil then placed into the distal esophagus below which the distal esophagus was divided. The anvil was then brought out through the area adjacent to the staple line. The patient was noted to have significant recurrent paraesophageal hernia with prolapse of quite a bit of stomach in the area primarily posteriorly to the esophagogastric junction after this had been reduced. The diaphragmatic hernia was then closed with some 0 Ethibond sutures. The small bowel was then prepared for the Clarence-en-Y esophagojejunostomy. At 40 cm distal to the ligament of Treitz, small bowel was divided. Small bowel was then traced out 100 cm distal to this point, where a [id number] enteroenterostomy was accomplished with internal firing of the Endo-AJ 60 mm stapler. Common opening was then closed transversely with the same stapler, and the angles anastomosed and mesenteric defect approximated with some 3-0 Vicryl stitch along with fibrin sealant. Through retrocolic retrogastric approach, the Clarence limb was then brought up adjacent to the divided esophagus. The divided end of Clarence limb was then opened and main body of the EEA stapler passed few centimeters into it where it was brought up to the anvil and united with it, thus creating the esophagojejunostomy. Upon removal of the stapler, double donuts of mucosa were noted within it. The proximal tissue was a "fish-belly white" mucosa consistent with esophageal mucosa. The open end of the Clarence limb was then closed off with a AJ stapler, and the esophagojejunostomy was reinforced with some 3-0 Vicryl seromuscular stitch along with fibrin sealant. The abdomen was then irrigated with antibiotic-containing saline solution. The point where the small bowel passed through the transverse mesocolon was also then fixed with some 3-0 Vicryl stitch. A single Chilo-Mcdonnell drain was then taken out through the left subcostal area and placed adjacent to the esophagojejunostomy and from there up into the splenic fossa. The midline fascia was then approximated with #2 Vicryl stitch. The skin and subcutaneous tissue were felt to be at high risk for wound infection and was therefore packed open for a planned delayed primary closure in 48 hours. Physician surgical physician assistant, Gemma Saab PA-C, played an essential role in assisting in this case, helping to position the patient, retract structures as needed, as well as suturing and cutting sutures when indicated. Her presence improved patient safety and decreased operative time. Kai Wray MD /[id number]
== END 2020-05-30 13:00 | disposition home or self-care (01) | DRG 326 ==
LOC: JP.SDS 08:06 → JP.MS 08:07 → EDSTATUS 08:45 → JP.MS 14:00
PROVIDERS: ADMIT Surgery; ATTEND Surgery
PROC: 0D150ZA Bypass Esophagus to Jejunum, Open Approach (ICD-10-PCS; principal; 2020-05-22)
PROC: 0BQT0ZZ Repair Diaphragm, Open Approach (ICD-10-PCS; 2020-05-22)
PROC: 0DB30ZZ Excision of Lower Esophagus, Open Approach (ICD-10-PCS; 2020-05-22)
PROC: 0DB60ZZ Excision of Stomach, Open Approach (ICD-10-PCS; 2020-05-22)
PROC: 0HB9XZZ Excision of Perineum Skin, External Approach (ICD-10-PCS; 2020-05-22)
PROC: 0JQ80ZZ Repair Abdomen Subcutaneous Tissue and Fascia, Open Approach (ICD-10-PCS; 2020-05-24)
DX: K21.00 Gastro-esophageal reflux disease with esophagitis, without bleeding (principal); I26.99 Other pulmonary embolism without acute cor pulmonale; B37.81 Candidal esophagitis; F33.1 Major depressive disorder, recurrent, moderate; J96.11 Chronic respiratory failure with hypoxia; J45.20 Mild intermittent asthma, uncomplicated; K44.9 Diaphragmatic hernia without obstruction or gangrene; K31.84 Gastroparesis; G47.33 Obstructive sleep apnea (adult) (pediatric); F41.1 Generalized anxiety disorder; M79.7 Fibromyalgia; G89.4 Chronic pain syndrome; J43.9 Emphysema, unspecified; Z86.16 Personal history of COVID-19; N73.2 Unspecified parametritis and pelvic cellulitis; Z79.891 Long term (current) use of opiate analgesic; Z99.81 Dependence on supplemental oxygen
CPT/HCPCS: 36415; 71046; 71046-26; 71275; 71275-26; 74240; 74240-26; 80053; 82525; 82607; 82728; 82746; 83735; 83880; 84100; 84132; 84590; 84630; 85025; 85027; 86850; 86900; 86901; 87040; 88305; 88307; 93005; 93010; 94640; 94762; 99221; 99232; A9270-GY; C9113; J0171; J0330; J0694; J1100; J1170; J1644; J1650; J1940; J1956; J2001; J2185; J2405; J2543; J2704; J2710; J2795; J3010; J3370; J3410; J3411; J3420; J3475; J3480; J3490; J7050; J7121; J7620-GY; Q9967